=== PATIENT | female | born 1940 | race Caucasian/White ===

== ENCOUNTER 2017-12-17 12:21 | Emergency (ER) | payer OTHER ==
[2017-12-17 14:06] LABS: Absolute Lymphocytes (CBC) 2.5 K/uL (0.7-4.9); Absolute Monocytes 0.7 K/uL (0.1-1.3); Absolute Neutrophil 5.5 K/uL (1.8-8.0); Basophils % 0.8 % (0-1.3); Hematocrit 42.8 % (36.0-45.0); Lymphocytes % 28.3 % (15.3-44.8); MCH 30.9 pg (27.0-35.0); MCV 93.5 fL (80-100); MPV 7.8 fL (7.6-11.3); Monocytes % 7.7 % (3.3-12.3); RBC Red Blood Cell Count 4.58 M/uL (3.86-4.86)
[2017-12-17 14:08] LABS: Potassium 3.8 mEq/L (3.6-5.0)
[2017-12-17] MEDS ORDERED: NA CHLORIDE 0.9% 500 ML ONE (14:08)
[2017-12-17] MEDS ORDERED: MECLIZINE HCL 12.5 MG TAB ONE (14:08)
--- NOTE | 2017-12-17 14:30 | RAD REPORT ---
EXAM DESCRIPTION: CT - Head Brain Wo Cont - 12/17/2017 2:21 pm CLINICAL HISTORY: Dizziness, syncope. COMPARISON: 08/01/2017 TECHNIQUE: All CT scans are performed using dose optimization technique as appropriate and may inclu de automated exposure control or mA/KV adjustment according to patient size. FINDINGS: No intracranial hemorrhage, hydrocephalus or extra-axial fluid collection.Mild generalized brain atrophy is present with mild periventricular and deep white matter chronic microvascular ische erendira changes.No areas of brain edema or evidence of midline shift. The paranasal sinuses and mastoids are clear. The calvarium is intact. IMPRESSION: No acute intracranial abnormality.
--- NOTE | 2017-12-17 14:40 | ER ---
Nurse's Notes [facility] Name: Liza Hernandez Age: 77 yrs Sex: Female : 1940 Arrival Date: 12/17/2017 Time: 12:22 Bed 17 Private MD: Devang Roa R Diagnosis: Vertigo Presentation: 12/17 12:53 Presenting complaint: Patient states: Dizziness z 1 year. Dizziness is worse when hb supine. PCP referred her to ENT, has appt next Tuesday., but feels like she is getting worse. Ambulated with steady gait to triage. Transition of care: patient was not received from another setting of care. Onset of symptoms is unknown. Care prior to arrival: None. 12:53 Method Of Arrival: Ambulatory hb 12:53 Acuity: ITZEL 3 hb Triage Assessment: 13:29 General: Appears in no apparent distress. uncomfortable. General: Behavior is calm, hj cooperative, appropriate for age. Pain: Denies pain. Historical: - Allergies: 12:56 Bactrim; hb 12:56 Codeine; hb 12:56 Demerol; hb 12:56 Tracium; hb - Home Meds: 12:56 Advair Diskus Inhl [Active]; atorvastatin 10 mg Oral tab [Active]; meloxicam 7.5 mg hb Oral tab [Active]; omeprazole 40 mg Oral cpDR 1 cap once daily [Active]; Ventolin HFA 90 mcg/actuation Nebulizer HFAA [Active]; - PMHx: 12:56 COPD; Hyperlipidemia; Vertigo; hb - PSHx: 12:56 Tubal ligation; hb - Immunization history:: Adult Immunizations up to date. - Social history:: Smoking status: Patient/guardian denies using tobacco. - Family history:: not pertinent. - Hospitalizations: : No recent hospitalization is reported. Screenin:29 Abuse screen: Denies threats or abuse. Denies injuries from another. Nutritional hj screening: No deficits noted. Tuberculosis screening: No symptoms or risk factors identified. Fall Risk None identified. Assessment: 13:30 General: Appears in no apparent distress. uncomfortable, Behavior is calm, cooperative, hj appropriate for age. Pain: Denies pain. Neuro: Level of Consciousness is awake, alert, obeys commands, Oriented to person, place, time, situation, Reports dizziness, for a wyear. Cardiovascular: Capillary refill < 3 seconds Patient's skin is warm and dry. Respiratory: Airway is patent Respiratory effort is even, unlabored, Respiratory pattern is regular, symmetrical. GI: No signs and/or symptoms were reported involving the gastrointestinal system. : No signs and/or symptoms were reported regarding the genitourinary system. EENT: Parent/caregiver reports the patient having has an appointment with EENT;. Derm: No signs and/or symptoms reported regarding the dermatologic system. Musculoskeletal: No signs and/or symptoms reported regarding the musculoskeletal system. 14:18 Reassessment: sent to CT;. Vital Signs: 12:56 BP 170 / 84; Pulse 81; Resp 20; Temp 98(TE); Pulse Ox 96% on R/A; Weight 64.41 kg; hb Height 5 ft. 2 in. (157.48 cm); Pain 10/10; 13:30 BP 169 / 85; Pulse 85; Resp 18; Pulse Ox 100% on R/A; hj 14:30 BP 167 / 86; Pulse 87; Resp 18; Pulse Ox 100% on R/A; hj 15:20 BP 168 / 82; Pulse 80; Resp 18; Pulse Ox 100% on R/A; hj 12:56 Body Mass Index 25.97 (64.41 kg, 157.48 cm) hb ED Course: 12:22 Patient arrived in ED. as 12:22 Devang Roa MD is Private Physician. as 12:56 Triage completed. hb 12:56 Arm band placed on right wrist. hb 13:28 Reg Finch, RN is Primary Nurse. hj 13:29 Patient has correct armband on for positive identification. Bed in low position. Call light in reach. Side rails up X 1. 13:38 Chay Cooper MD is Attending Physician. rn 13:41 Initial lab(s) drawn, by ga, sent to lab. Inserted saline lock: 22 gauge in right forearm, using aseptic technique. Blood collected. 14:21 CT Head Brain wo Cont In Process Unspecified. EDMS 14:21 CT completed. Patient tolerated procedure well. Patient moved back from CT. bq 14:27 EKG done, by ED staff, reviewed by Chay Cooper MD. jb1 14:39 Devang Roa MD is Referral Physician. rn 15:02 No provider procedures requiring assistance completed. IV discontinued, intact, hj bleeding controlled, No redness/swelling at site. Pressure dressing applied. Administered Medications: 13:45 Drug: NS 0.9% 500 ml Route: IV; Rate: bolus; Site: right forearm; hj 15:03 Follow up: IV Status: Completed infusion hj 13:45 Drug: Meclizine 50 mg Route: PO; hj 13:54 Follow up: Response: No adverse reaction hj 15:03 Follow up: Response: No adverse reaction Outcome: 14:39 Discharge ordered by . rn 15:02 Discharged to home ambulatory, with family. 15:02 Condition: stable 15:02 Discharge instructions given to patient, family, Instructed on discharge instructions, follow up and referral plans. medication usage, Demonstrated understanding of instructions, follow-up care, medications, Prescriptions given X 1. 15:17 Patient left the ED. Signatures: Dispatcher [employer] EDMS William Sheridan Betty bq Martinez, Amelia as Nieto, Roman, MD MD rn Joaquin, Henry, RN RN hj Baxter, Heather, RN RN
--- NOTE | 2017-12-17 14:40 | EDPHYS ---
Physician Documentation [facility] Name: Liza Hernandez Age: 77 yrs Sex: Female : 1940 Arrival Date: 12/17/2017 Time: 12:22 Bed 17 Private MD: Devang Roa R ED Physician Chay Cooper HPI: 12/17 14:36 This 77 yrs old Female presents to ER via Ambulatory with complaints of rn Dizziness. 14:36 The patient presents with dizziness, vertigo. Onset: The symptoms/episode rn began/occurred 1 year(s) ago. Modifying factors: The symptoms are alleviated by Antivert, holding head still, the symptoms are aggravated by movement of head, standing up, changing position. Severity of symptoms: At their worst the symptoms were moderate in the emergency department the symptoms have improved. The patient has experienced similar episodes in the past. Reports 1 year hx of vertigo, improved with her sons meclizine, ran out, got worse over last few days, came in for medication and evaluation. Has appt with ENT this next week. . Historical: - Allergies: 12:56 Bactrim; hb 12:56 Codeine; hb 12:56 Demerol; hb 12:56 Tracium; hb - Home Meds: 12:56 Advair Diskus Inhl [Active]; atorvastatin 10 mg Oral tab [Active]; meloxicam 7.5 mg hb Oral tab [Active]; omeprazole 40 mg Oral cpDR 1 cap once daily [Active]; Ventolin HFA 90 mcg/actuation Nebulizer HFAA [Active]; - PMHx: 12:56 COPD; Hyperlipidemia; Vertigo; hb - PSHx: 12:56 Tubal ligation; hb - Immunization history:: Adult Immunizations up to date. - Social history:: Smoking status: Patient/guardian denies using tobacco. - Family history:: not pertinent. - Hospitalizations: : No recent hospitalization is reported. ROS: 14:36 Constitutional: Negative for fever, chills, and weight loss, Eyes: Negative for injury, rn pain, redness, and discharge, Neck: Negative for injury, pain, and swelling, Cardiovascular: Negative for chest pain, palpitations, and edema, Respiratory: Negative for shortness of breath, cough, wheezing, and pleuritic chest pain, Abdomen/GI: Negative for abdominal pain, nausea, vomiting, diarrhea, and constipation, MS/Extremity: Negative for injury and deformity, Skin: Negative for injury, rash, and discoloration, Neuro: Negative for headache, weakness, numbness, tingling, and seizure. Exam: 14:36 Constitutional: This is a well developed, well nourished patient who is awake, alert, rn and in no acute distress. Head/Face: Normocephalic, atraumatic. Eyes: Pupils equal round and reactive to light, extra-ocular motions intact. Lids and lashes normal. Conjunctiva and sclera are non-icteric and not injected. Cornea within normal limits. Periorbital areas with no swelling, redness, or edema. Neck: Trachea midline, no thyromegaly or masses palpated, and no cervical lymphadenopathy. Supple, full range of motion without nuchal rigidity, or vertebral point tenderness. No Meningismus. Cardiovascular: Regular rate and rhythm with a normal S1 and S2. No gallops, murmurs, or rubs. Normal PMI, no JVD. No pulse deficits. Respiratory: Lungs have equal breath sounds bilaterally, clear to auscultation and percussion. No rales, rhonchi or wheezes noted. No increased work of breathing, no retractions or nasal flaring. Abdomen/GI: Soft, non-tender, with normal bowel sounds. No distension or tympany. No guarding or rebound. No evidence of tenderness throughout. MS/ Extremity: Pulses equal, no cyanosis. Neurovascular intact. Full, normal range of motion. Equal circumference. Neuro: Awake and alert, GCS 15, oriented to person, place, time, and situation. Cranial nerves II-XII grossly intact. Motor strength 5/5 in all extremities. Sensory grossly intact. Cerebellar exam normal. Normal gait. Vital Signs: 12:56 BP 170 / 84; Pulse 81; Resp 20; Temp 98(TE); Pulse Ox 96% on R/A; Weight 64.41 kg; hb Height 5 ft. 2 in. (157.48 cm); Pain 10/10; 13:30 BP 169 / 85; Pulse 85; Resp 18; Pulse Ox 100% on R/A; hj 14:30 BP 167 / 86; Pulse 87; Resp 18; Pulse Ox 100% on R/A; hj 15:20 BP 168 / 82; Pulse 80; Resp 18; Pulse Ox 100% on R/A; hj 12:56 Body Mass Index 25.97 (64.41 kg, 157.48 cm) hb MDM: 13:38 Patient medically screened. rn 14:36 Differential diagnosis: hypovolemia, idiopathic dizziness, vertigo. Data reviewed: rn vital signs, nurses notes, lab test result(s), EKG, radiologic studies, CT scan, and as a result, I will discharge patient. Counseling: I had a detailed discussion with the patient and/or guardian regarding: the historical points, exam findings, and any diagnostic results supporting the discharge/admit diagnosis, the need for outpatient follow up, to return to the emergency department if symptoms worsen or persist or if there are any questions or concerns that arise at home. Response to treatment: the patient's symptoms have mildly improved after treatment, and as a result, I will discharge patient. Special discussion: I discussed with the patient/guardian in detail that at this point there is no indication for admission to the hospital. It is understood, however, that if the symptoms persist or worsen the patient needs to return immediately for re-evaluation. Based on the history and exam findings, there is no indication for further emergent testing or inpatient evaluation. I discussed with the patient/guardian the need to see the ENT specialist for further evaluation of the symptoms. I discussed with the patient/guardian the need to see the neurologist for further evaluation of the symptoms. 12/17 13:45 Order name: CBC with Diff; Complete Time: 14:21 rn 12/17 13:45 Order name: Basic Metabolic Panel; Complete Time: 14:21 rn 12/17 13:45 Order name: EKG; Complete Time: 13:45 rn 12/17 13:45 Order name: CT Head Brain wo Cont; Complete Time: 14:36 rn 12/17 13:45 Order name: IV Start; Complete Time: 13:45 rn 12/17 13:45 Order name: EKG - Nurse/Tech; Complete Time: 13:45 rn Administered Medications: 13:45 Drug: NS 0.9% 500 ml Route: IV; Rate: bolus; Site: right forearm; hj 15:03 Follow up: IV Status: Completed infusion hj 13:45 Drug: Meclizine 50 mg Route: PO; hj 13:54 Follow up: Response: No adverse reaction hj 15:03 Follow up: Response: No adverse reaction hj Disposition: 12/17/17 14:39 Discharged to Home. Impression: Vertigo. - Condition is Stable. - Discharge Instructions: Vertigo. - Prescriptions for Meclizine 25 mg Oral Tablet - take 1 tablet by ORAL route every 8 hours As needed; 30 tablet. - Medication Reconciliation Form, Thank You Letter, Antibiotic Education, Prescription Opioid Use form. - Follow up: Devang Roa MD; When: As needed; Reason: Recheck today's complaints, Re-evaluation by your physician. - Problem is chronic. - Symptoms have improved. Signatures: Dispatcher [employer] EDMS Chay Cooper MD MD rn Joaquin, Henry, RN RN hj Baxter, Heather, RN RN
--- NOTE | 2017-12-17 14:57 | EKG ---
Test Date: 2017-12-17 Test Time: 13:44:19 Typing Checker: EMERY MEASUREMENT RESULTS: Intervals: Rate: 73 [place]: 158 QRSD: 84 QT: 416 QTc: 458 [place]: P: 38 [place]: 158 QRS: 2 T: 26 INTERPRETIVE STATEMENTS: Normal sinus rhythm Normal ECG Compared to ECG 08/01/2017 10:23:20 No significant changes Electronically Signed On 12-17-17 14:56:26 CDT by Parker Arora
[2017-12-17 15:25] VITALS: BP 170/84; TEMP 98; O2SAT 96
== END 2017-12-17 15:17 | disposition home or self-care (01) ==
LOC: ER 12:21
DX: R42 Dizziness and giddiness (principal); J44.9 Chronic obstructive pulmonary disease, unspecified; E78.5 Hyperlipidemia, unspecified; Z88.1 Allergy status to other antibiotic agents; Z88.5 Allergy status to narcotic agent; Z88.8 Allergy status to other drugs, medicaments and biological substances
CPT/HCPCS: 36415; 70450; 80048; 85025; 93005; 96360; 99284

== ENCOUNTER 2020-08-07 11:42 | Emergency (ER) | payer OTHER ==
--- OUTSIDE RECORDS SUMMARY | 2020-08-07 11:45 | XMS REPORT | Encounter Summary ---
:1940 Author Care Team Providers Name Role Phone Dr. Devang Trejo Primary Care Provider [phone] Reason for Visit TELE-AWV Annual Wellness Visit Female Instructions 1. Advance directive discussed w ith patient advance care planning: car e instructions 2. Depression screening learning about depression 3. Chronic obstructive lung dise ase 4. Essential hypertension 5. Gastroesophageal reflux disea se 6. Rheumatoid arthritis 7. Hypercholesterolemia Discussion Note Patient denies any acute issues at this time. Patient encouraged to continue with treatment as directed. Patient enco uraged to notify pcp for continues sob,cough and fever. Patient verbalized understand ing. Plan of Care Patient Instructions It was good to speak with you nicolasa braswelly today for your Medicare Annual Wellness Visit. You have been provided some information on healthy nutrition, including a diet rich in fruits and vegetables, minimizing simple carbohydrates, salt, and saturated fats. I want to encourage regular cardiovascular exercise such as walking at least 30 minutes daily, 5 times per week. Please remember to schedule any prevent dana health measures that we talked about today. You have also been provided education on fall prevention and community- based lifestyle interventions to help reduc e health risks and promote healthy livin g in your Annual Wellness folder. Screening Recommendations 1. Vaccines Pneumonia: No further need Influenza: This Fall 2. Mammography Screening: Next Screening 3. Colorectal Cancer Screening: Colonoscopy a ago Recommended today 4. Annual Depression Screening 5 . Annual Alcohol Screening 6. Annual Fal l Risk Screening 7. Annual Health Risk Assessment Reminders Provider Appointments Telemedicine on or around Yany 07/03/2020 [facility] None recorded. Referral None recorded. Procedures None recorded. Surgeries None recorded. Imaging None recorded. Medications Name Start Date Advair Diskus 100 mcg-50 mcg/dose powder for inhalatio n Inhale 1 puff twice a day by inhalation route. atorvastatin 10 mg tablet Take 1 tablet every day by oral route. meloxicam 7.5 mg tablet Take 1 tablet every day by oral route. omeprazole 40 mg capsule,delayed release Take 1 capsule every day by oral route. ProAir HFA 90 mcg/actuation aerosol inhaler Inhale 2 puffs every 4 hours by inhalation route. valsartan 80 mg tablet Take 1 tablet every day by oral route. Medications Administered None recorded. Vitals Height Weight BMI 5 ft 2 in 144 lbs 26.3 kg/m2 Results Lab Results None recorded. Allergies Code Code System Name Reaction Severity Status Onset 060891 RxNorm Bactrim Rash Mild to Active Moderate 2670 RxNorm Codeine Flushing Moderate to Active Severe Problems Name Status Onset Date Source Hypercholesterolemia Active 06/10/2020 Essential Hypertension Active 06/10/2020 Chronic Obstructive Lung Disease Active 06/10/2020 Gastroesophageal Reflux Disease Active 06/10/2020 Rheumatoid Arthritis Active 06/10/2020 Procedures None recorded. Vaccine List None recorded. Social History Tobacco Smoking Status Former Smoker (1 PPW) Past Encounters 06/10/2020 Advance Directive Discussed with Patient ; Depression Screening; Chronic Obstructive Lung Disease; Essential Hypertension; Gastroesophageal Reflux Disease; Rheumatoid Arthritis; Hypercholesterolemia Yany Soliman [employer]: [address] [facility], [address], [place] [address], Ph. History of Present Illness COPD Reported By: Patient HPI:: COPD Staging: no prior rayshawn metry. Quality: no cough, no shortness of breath, no wheezing. Severit y: mild. Onset/Timing: chronic. Context: cigarette smoking. Prior kevyn atment history number of exacerbations in past year 0. COPD Medication s: no rescue medication use. Alleviating factors: relieved with rest, relieved with oxygen. Aggravating factors: nothing makes it worse. Asso ciated Symptoms: no snoring, no excessive daytime sleepiness, no arous als from sleep, no dyspnea, no decrease in exercise capacity, no fatigu e, not coughing up sputum Mini Cog Reported By: Patient Functional Ability: Personal/Social/ Draw a cloc k and write in the numbers in the correct place, and set the t lionel to 10 minutes after 11 o'clock was completed correctly? Yes Opioid Use Assessment Reported By: Patient Opioid Use Assessment:: Current Use of Opioids : no use of opioids (no further questions required) Note: I confirm that I received verbal consent from the patient for the virtual visit.
This telemedicine encounter was performed using live {{video and audio|audio only because either patient did not have technology or unable to connect due to technical problems*}}.
<strong>(for a udio only)</strong> Total time spent with patient: {{50#| }} minutes.<div>[facility] ( SHANNAN: __Aminata Charlene-Mbayo ) reviewed the [employer] [facility] consent form verbally withpatient. Patient {{did*|did not}} have questions. Any and all patient questions were addressed. Patient consented to health care services provided via [employer]. Patient was directed to the [facility] website to review the form in greater detail. Patient was informed that a physical copy of the consent would be mailed to his/her home. Patient confirmed that, upon receipt of the consent, that he/she will sign and return the form in the pre-addressed and stamped envelope.</div> Review of Systems Comprehensive General Adult ROS Reported By: Patient Constitutional: Constitutional: no fever, no night sweats, no significant weight gain, no significant weight loss, no exercise intolerance Eyes: Eyes: no dry eyes, no vision change, no irritation ENMT: Ears: no difficulty hearing, no ear pain. Nose: no frequent nosebleeds, no nose problems , no sinus problems. Mouth/Throat: no sore throat, no bleeding gums, no snoring, no dry mouth, no mouth ulcers, no oral abnorm alities, no teeth problems Cardiovascular: Cardiovascular: no chest fabrizio n, no arm pain on exertion, no shortness of breath when wal [place], no shortness of breath when lying down, no palpitations, no known heart murmur, no lightheadedness Respiratory: Respiratory: no cough, no wh eezing, no shortness of breath, no coughing up blood, no sleep apnea Gastrointestinal: Gastrointestinal: no abdomin al pain, no nausea, no vomiting, no constipation, normal appe tite, no diarrhea, not vomiting blood, no dyspepsia, no GERD Genitourinary: Genitourinary: no incontinen ce, no difficulty urinating, no hematuria, no increased freq uency Musculoskeletal: Musculoskeletal: no muscle a ches, no muscle weakness, no arthralgias/joint pain, no b ack pain, no swelling in the extremities Integumentary: Skin: no abnormal mole, no j aundice, no rashes, no laceration Neurologic: Neurologic: no loss of consc iousness, no weakness, no numbness, no seizures, no di zziness, no migraines, no headaches, no tremor Psychiatric: Psych: no depression, no sle ep disturbances, feeling safe in a relationship, no alcohol abu se, no anxiety, no hallucinations, no suicidal thoughts Endocrine: Endocrine: no fatigue Hematologic/Lymphatic: Hematologic/Lymphatic no swo llen glands, no bruising, no excessive bleeding Allergic/Immunologic: Allergy/Immunologic: no runn y nose, no sinus pressure, no itching, no hives, no freque nt sneezing Physical Exam Telemedicine/Virtual Visit Reported By: Patient Constitutional: Level of Distress: NAD Psychiatric: Insight: good judgement. Men cinda Status: active and alert, normal mood, normal affect. Orienta tion: to time, to place, to person. Memory: recent memory normal , remote memory normal"
--- OUTSIDE RECORDS SUMMARY | 2020-08-07 11:45 | XMS REPORT | Encounter Summary ---
:1940 Author Care Team Providers Name Role Phone Dr. Devang Trejo Primary Care Provider [phone] Reason for Visit Gastroesophageal reflux disease; Hyperch olesterolemia; Essential hypertension; Telemedicine Visit Instructions 1. Hypercholesterolemia 2. Gastroesophageal reflux disea se 3. Essential hypertension 4. Chronic obstructive lung dise ase Discussion Note Patient denies any acute issues at this time. Patient encouraged to notify her pcp for any continues fever,cough and so b. Patient verbalized understanding. Patient educational handouts: No information available. Plan of Care Reminders Provider Appointments Telemedicine on or around Yany 10/06/2020 [facility] None recorded. Referral None [...] oral route. Medications Administered None recorded. Vitals None recorded. Results Lab Results None recorded. Allergies Code Code System Name Reaction Severity Status Onset 060439 RxNorm Bactrim Rash Mild to Active Moderate 3800 RxNorm Codeine Flushing Moderate to Active Severe Problems Name Status Onset Date Source Hypercholesterolemia Active 06/10/2020 Essential Hypertension Active 06/10/2020 Chronic Obstructive Lung Disease Active 06/10/2020 Gastroesophageal Reflux Disease Active 06/10/2020 Rheumatoid Arthritis Active 06/10/2020 Procedures None recorded. Vaccine List None recorded. Social History Tobacco Smoking Status Former Smoker (1 PPW) Past Encounters Encounter Date Diagnosis Provider 07/03/2020 Hypercholesterolemia; Yany Charlene-Mbay o, SEC[employer] SALES MANAGER: Gastroesophageal Reflux Disease; [address], [address] Essential Hypertension; [address], [place], [place] Obstructive Lung Disease [id number], Ph. 06/10/2020 Advance Directive Discussed with Yany Soliman NP: Patient; Depression Screening; [address], [address] Chronic Obstructive Lung Disease; [address], [place], [place] Essential Hypertension; [address], Ph. [phone] Gastroesophageal Reflux Disease; [phone] Rheumatoid Arthritis; Hypercholesterolemia History of Present Illness COPD CDM Reported By: Patient HPI:: Quality: no cough, no shortn ess of breath, no wheezing. COPD Severity and Treatment: COPD exacerba tions (ex. ED or urgent care visit, PCP visit, used Rescue Pack) in last year: 0. Context: does patient use rescue inhaler as prescribed ? yes, does patient take daily COPD medications as prescribed? yes, does patient have trouble affording COPD medications? No, sees a transportation economics teacher no GI Disorders CDM Reported By: Patient HPI: Type: GERD without esophagit is. Duration or Onset: chronic. Status: controlled. Associated Sympt oms: no NEW associated symptoms, no abdominal pain, no melena, n o hematochezia, no dry mouth. Modifying Factors: improved with medic ation, improved with exercise, improved with diet. Compliance: COMPLIANT WITH and UNDERSTANDS MED USE, compliant with diet Hyperlipidemia Reported By: Patient HPI: Type of hyperlipidemia: hype rcholesterolemia. Duration: chronic. Control: improving. Complian ce: compliant, compliant with diet. Complications: no coronary a rtery disease Hypertension Reported By: Patient HPI: Severity: mild. Onset/Timing : better. Aggravating Factors: changed exercise routine. Self Care: not under emotional stress. Associated Symptoms: no shortness of br eath, no fatigue, no palpitations Note: I confirm that I received verbal consent from the patient for the virtual visit.
This telemedicine encounter was performed using live {{video and audio|audio only because either patient did not have technology or unable to connect due to technical problems*}}.
<strong>(for a udio only)</strong> Total time spent with patient: {{35#| }} minutes. Review of Systems Comprehensive General Adult ROS [...]
--- OUTSIDE RECORDS SUMMARY | 2020-08-07 11:45 | XMS REPORT | Continuity of Care Document ---
:1940 Author Organization [facility] t Address [address] [place] [id number] Care Team Providers Name Role Phone Unavailable Unavailable Unavailable Problems Condition Condition Condition Status Onset Resolution Last Treating Co mments Source Name Details Category Date Date Treatment Clinician Date Hyperchole Hyperchole Problem Active [facility] sterolemia sterolemia 06-10 Fa cristóbal 00:00: Practic 00 e Essential Essential Problem Active Tc rosmery hypertensi Hypertensi 06-10 Fa cristóbal on on 00:00: Practic 00 e Chronic Chronic Problem Active [place] obstructiv Obstructiv 06-10 Fa cristóbal e lung e Lung 00:00: Practic disease Disease 00 e Gastroesop Gastroesop Problem Active [facility] hageal hageal 06-10 Family reflux Reflux 00:00: Practic disease Disease 00 e Rheumatoid Rheumatoid Problem Active [facility] arthritis Arthritis 06-10 Fami ly 00:00: Practic 00 e Allergies, Adverse Reactions, Alerts Allergy Allergy Status Severity Reaction(s) Onset Inactive Treating Comm ents Source Name Type Date Date Clinician Bactrim Allergy Active Mild to Rash [place] to moderate Family substanc Practic e e Codeine Allergy Active Moderate [place] age to to severe Family substanc Practic e e Social History Smoking Status Start Date Stop Date Source Former Smoker [facility] Medications Ordered Filled Start Stop Current Ordering Indication Dosage Frequency Signature Comments Components Source Medication Medication Date Date Medication? Clinician (SIG) Name Name Advair Advair No 1puff(s BID Advair [place] e Diskus 100 Diskus 100 ) Diskus 100 Family mcg-50 mcg-50 mcg-50 Practic mcg/dose mcg/dose mcg/dose e powder for powder for powder for inhalation inhalation inhalation Inhale 1 Inhale 1 Inhale 1 puff twice puff twice puff twice a day by a day by a day by inhalation inhalation inhalation route. route. route. atorvastati atorvastati No 1 Q1D atorvastat [facility] n 10 mg n 10 mg in 10 mg Famil y tablet Take tablet Take tablet Practic 1 tablet 1 tablet Take 1 e every day every day tablet by oral by oral every day route. route. by oral route. meloxicam meloxicam No 1 Q1D meloxicam [facility] 7.5 mg 7.5 mg 7.5 mg Family tablet Take tablet Take tablet Practic 1 tablet 1 tablet Take 1 e every day every day tablet by oral by oral every day route. route. by oral route. omeprazole omeprazole No 1capsul Q1D omeprazole [facility] 40 mg 40 mg e(s) 40 mg Family capsule,del capsule,del capsule,de Practic ayed ayed layed e release release release Take 1 Take 1 Take 1 capsule capsule capsule every day every day every day by oral by oral by oral route. route. route. ProAir HFA ProAir HFA No 2puff(s Q4H ProAir HFA [facility] 90 90 ) 90 Family mcg/actuati mcg/actuati mcg/actuat Practic on aerosol on aerosol ion e inhaler inhaler aerosol Inhale 2 Inhale 2 inhaler puffs every puffs every Inhale 2 4 hours by 4 hours by puffs inhalation inhalation every 4 route. route. hours by inhalation route. valsartan valsartan No 1 Q1D valsartan [facility] 80 mg 80 mg 80 mg Family tablet Take tablet Take tablet Practic 1 tablet 1 tablet Take 1 e every day every day tablet by oral by oral every day route. route. by oral route. Vital Signs Vital Name Observation Time Observation Value Comments Source Height 2020-06-10 00:00:00 62 [in_i] [facility] BMI (Body Mass 2020-06-10 00:00:00 26.3 kg/m2 [facility] Weight 2020-06-10 00:00:00 144 [lb_av] [facility] Procedures This patient has no known procedures. Plan of Care Planned Activity Planned Date Details Comments Source Future Appointment 2020-10-06 00:00:00 Yany iqbal [facility] DerekAnne, [address]; [address], [place] [address] Encounters Start End Encounter Admission Attending Care Care Encounter Source Date/Time Date/Time Type Type Clinicians Facility Department ID 2020-07-03 2020-07-03 [facility] - [id number] [facility] 00:00:00 00:00:[address] [facility] Charly soler ANALYSIS MANAGER: Margareth Mal[email or web address], [place] [address] , Ph. 2020-06-10 2020-06-10 [facility] [place] - [id number] [facility] Charly soler ANALYSIS MANAGER: Margareth will [email or web address], [place] [address] , Ph. Results This patient has no known results.
[2020-08-07 13:25] LABS: Absolute Lymphocytes (CBC) 0.6 K/uL (0.7-4.9); Basophils % 0.3 % (0-1.3); Hematocrit 41.4 % (36.0-45.0); Lymphocytes % 4.8 % (15.3-44.8); MPV 7.9 fL (7.6-11.3); RBC Red Blood Cell Count 4.45 M/uL (3.86-4.86)
[2020-08-07] MEDS ORDERED: FAMOTIDINE 20 MG/2 ML VIAL IV ONE (13:25)
[2020-08-07] MEDS ORDERED: KETOROLAC 30 MG/ML INJ ONE (13:25)
[2020-08-07] MEDS ORDERED: ONDANSETRON 4 MG/2 ML VIAL ONE (13:25)
[2020-08-07] MEDS ORDERED: MAGNES/ALUMIN/SIMET 30ML UCUP ONE (13:25)
[2020-08-07] MEDS ORDERED: NA CHLORIDE 0.9% 1,000 ML ONE (13:26)
[2020-08-07 13:37] LABS: Albumin 3.9 g/dL (3.4-5.0); Bilirubin Direct 0.3 mg/dL (0-0.2); Bilirubin Total 1.1 mg/dL (0.2-1.0); Potassium 3.9 mmol/L (3.5-5.1); Protein, Total 7.8 g/dL (6.4-8.2)
--- NOTE | 2020-08-07 14:22 | RAD REPORT ---
EXAM DESCRIPTION: CT - Abdomen Pelvis W Contrast - 08/07/2020 1:58 pm CLINICAL HISTORY: Abdominal pain COMPARISON: 2014 TECHNIQUE: Computed axial tomography of the abdomen pelvis was obtained. 100 cc Isovue-300 was admin istered intravenously. Oral contrast was not requested which limits evaluation of bowel. All CT scans are performed using dose optimization technique as appropriate and may include automated exposure control or mA/KV adjustment according to patient size. FINDINGS: The liver, spleen, pancreas, adrenal and kidneys appear unremarkable. 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 Diverticula stem from the colon. Minimal stranding adjacent to the sigmoid colon Mildly prominent left ovary is unchanged. Endometrial stripe is prominent. Mild gallbladder distention Small hiatal hernia IMPRESSION: Prominent endometrial stripe may be secondary to endometrial hyperplasia, polyp or neopl asm Mild gallbladder distention Minimal sigmoid diverticulitis
[2020-08-07 14:53] LABS: Blood Morphology Comment NOT SEEN (NOT SEEN); Platelet Estimate ADEQ; White Blood Cell Scan OK (OK)
[2020-08-07 15:01] LABS: Urine Blood NEGATIVE (NEG); Urine Glucose NEGATIVE (NEG); Urine Protein NEGATIVE (NEG); Urine Specific Gravity 1.005 (1.005-1.030); Urine pH 5.5 (5.0-7.0)
[2020-08-07] MEDS ORDERED: CEFTRIAXONE/SWI 1gm 1 GM/10 ML SYR ONE (15:42)
[2020-08-07] MEDS ORDERED: METRONIDAZOLE 500mg IVPB 500 MG/100 ML BAG IV ONE (15:42)
--- NOTE | 2020-08-07 16:05 | ER ---
Nurse's Notes [facility] Name: Liza Hernandez Age: 79 yrs Sex: Female : 1940 Arrival Date: 08/07/2020 Time: 11:45 Bed 13 Private MD: Devang Roa R Diagnosis: Diverticulitis of large intestine without perforation or abscess without bleeding Presentation: 08/07 12:05 Chief complaint: Patient states: "I started with this stomach flu since 0800 and I have jd3 been vomiting and having diarrhea since.". Coronavirus screen: At this time, the client does not indicate any symptoms associated with coronavirus-19. Ebola Screen: Patient negative for fever greater than or equal to 101.5 degrees Fahrenheit, and additional compatible Ebola Virus Disease symptoms. Initial Sepsis Screen: Does the patient meet any 2 criteria? No. Patient's initial sepsis screen is negative. Does the patient have a suspected source of infection? No. Patient's initial sepsis screen is negative. Risk Assessment: Do you want to hurt yourself or someone else? Patient reports no desire to harm self or others. Onset of symptoms was August 07, 2020. 12:05 Method Of Arrival: Ambulatory jd3 12:05 Acuity: ITZEL 3 jd3 Triage Assessment: 16:17 GI: Reports. ca1 Historical: - Allergies: 12:06 Bactrim; jd3 12:06 Codeine; jd3 12:06 Demerol; jd3 12:06 Tracium; jd3 - PMHx: 12:06 Hyperlipidemia; COPD; Vertigo; jd3 - PSHx: 12:06 Tubal ligation; jd3 - Immunization history:: Adult Immunizations up to date. - Social history:: Smoking status: Patient/guardian denies using tobacco, the patient reports quitting approximately 7 years ago, The patient lives with family, with spouse. - Family history:: not pertinent. Screenin:15 Abuse screen: Denies threats or abuse. Denies injuries from another. Nutritional ca1 screening: No deficits noted. Tuberculosis screening: No symptoms or risk factors identified. Fall Risk IV access (20 points). Assessment: 12:15 General: Appears in no apparent distress. comfortable, Behavior is calm, cooperative, ca1 appropriate for age. Pain: Complains of pain in right upper quadrant and left upper quadrant Pain currently is 2 out of 10 on a pain scale. Pain began 4 hours ago. Neuro: Level of Consciousness is awake, alert, obeys commands, Oriented to person, place, time, situation. Cardiovascular: Heart tones S1 S2 present Capillary refill < 3 seconds Patient's skin is warm and dry. Respiratory: Airway is patent Respiratory effort is even, unlabored, Respiratory pattern is regular, symmetrical, Breath sounds are clear bilaterally. GI: Abdomen is flat, non-distended, Bowel sounds present X 4 quads. Abd is soft and non tender X 4 quads. : No signs and/or symptoms were reported regarding the genitourinary system. EENT: No signs and/or symptoms were reported regarding the EENT system. Derm: Skin is intact, is healthy with good turgor, Skin is pink, warm \\T\\ dry. Musculoskeletal: Circulation, motion, and sensation intact. Capillary refill < 3 seconds. 13:15 Reassessment: Patient appears in no apparent distress at this time. Patient and/or ca1 family updated on plan of care and expected duration. Pain level reassessed. Patient is alert, oriented x 3, equal unlabored respirations, skin warm/dry/pink. 14:20 Reassessment: Patient appears in no apparent distress at this time. Patient and/or ca1 family updated on plan of care and expected duration. Pain level reassessed. Patient is alert, oriented x 3, equal unlabored respirations, skin warm/dry/pink. 15:16 Reassessment: Patient appears in no apparent distress at this time. Patient and/or ca1 family updated on plan of care and expected duration. Pain level reassessed. Patient is alert, oriented x 3, equal unlabored respirations, skin warm/dry/pink. 16:15 Reassessment: Patient appears in no apparent distress at this time. Patient is alert, ca1 oriented x 3, equal unlabored respirations, skin warm/dry/pink. Vital Signs: 12:06 BP 128 / 62; Pulse 100; Resp 17 S; Temp 97.2(TE); Pulse Ox 95% on R/A; Weight 66.22 kg jd3 (R); Height 5 ft. 2 in. (157.48 cm) (R); Pain 0/10; 13:15 BP 116 / 65; Pulse 92; Resp 16 S; Pulse Ox 96% on R/A; ca1 14:20 BP 119 / 69; Pulse 76; Resp 16 S; Pulse Ox 95% on R/A; ca1 15:15 BP 123 / 68; Pulse 89; Resp 18 S; Pulse Ox 96% on R/A; ca1 16:15 BP 121 / 71; Pulse 71; Resp 16; Pulse Ox 96% on R/A; ca1 12:06 Body Mass Index 26.70 (66.22 kg, 157.48 cm) jd3 ED Course: 11:45 Patient arrived in ED. as 11:45 Dveang Roa MD is Private Physician. as 12:05 Triage completed. jd3 12:08 Arm band placed on. jd3 12:13 Saba Zeng MD is Attending Physician. ma2 12:15 Patient has correct armband on for positive identification. Placed in gown. Bed in low ca1 position. Call light in reach. Side rails up X 1. Pulse ox on. NIBP on. Warm blanket given. 12:17 Jen Chatterjee, STEPHY is Primary Nurse. ca1 13:14 Inserted saline lock: 20 gauge in right antecubital area, using aseptic technique. dh4 Blood collected. 13:59 CT Abd/Pelvis - IV Contrast Only In Process Unspecified. EDMS 16:16 No provider procedures requiring assistance completed. IV discontinued, intact, ca1 bleeding controlled, No redness/swelling at site. Pressure dressing applied. Administered Medications: 13:15 Drug: NS 0.9% 1000 ml Route: IV; Rate: 1000 ml; Site: right forearm; ca1 14:20 Follow up: Response: No adverse reaction; IV Status: Completed infusion; IV Intake: ca1 1000ml 15:27 Follow up: Response: No adverse reaction; Nausea is decreased ca1 13:16 Drug: Zofran (Ondansetron) 4 mg Route: IVP; Site: right forearm; ca1 14:00 Follow up: Response: No adverse reaction; Nausea is decreased ca1 13:18 Drug: Pepcid 20 mg Route: IVP; Site: right forearm; ca1 15:28 Follow up: Response: No adverse reaction ca1 13:19 Drug: TORadol 30 mg Route: IVP; Site: right forearm; ca1 14:00 Follow up: Response: No adverse reaction; Pain is decreased ca1 13:21 Drug: GI Cocktail without - (Maalox Suspension 30 ml, Lidocaine Liquid 2 % 15 ca1 ml) Route: PO; 14:30 Follow up: Response: No adverse reaction ca1 15:34 Drug: Rocephin 1 grams Route: IV; Rate: calculated rate; Site: right forearm; ss 16:00 Follow up: Response: No adverse reaction; IV Status: Completed infusion ca1 15:36 Drug: Flagyl 500 mg Volume: 100 ml; Route: IVPB; Rate: 200 ml/hr; Infused Over: 30 ss mins; Site: right forearm; 16:15 Follow up: Response: No adverse reaction; IV Status: Completed infusion ca1 Intake: 14:20 IV: 1000ml; Total: 1000ml. ca1 Outcome: 16:05 Discharge ordered by MD. barnett 16:16 Discharged to home ambulatory, with family. ca1 16:16 Condition: stable 16:16 Discharge instructions given to patient, Instructed on discharge instructions, follow up and referral plans. medication usage, Demonstrated understanding of instructions, follow-up care, medications, Prescriptions given X 5 16:17 Patient left the ED. ca1 Signatures: Dispatcher [employer] EDYessi Kirkpatrick Shelby, STEPHY RN Piter Ponce RN RN Saba Chaney MD MD ma2 Acob, Cheryl, RN RN ca1 Huhn, Donald dh4
--- NOTE | 2020-08-07 16:05 | EDPHYS ---
Physician Documentation [facility] Name: Liza Hernandez Age: 79 yrs Sex: Female : 1940 Arrival Date: 08/07/2020 Time: 11:45 Bed 13 Private MD: Devang Roa R ED Physician Saba Zeng HPI: 08/07 12:39 This 79 yrs old Female presents to ER via Ambulatory with complaints of ma2 Vomiting/Diarrhea. 12:39 The patient presents to the emergency department with nausea, vomiting, diarrhea. ma2 Onset: The symptoms/episode began/occurred gradually, 1 day(s) ago. Associated signs and symptoms: Pertinent negatives: belching, dysuria. Severity of symptoms: At their worst the symptoms were moderate in the emergency department the symptoms are unchanged. The patient has not experienced similar symptoms in the past. Historical: - Allergies: 12:06 Bactrim; jd3 12:06 Codeine; jd3 12:06 Demerol; jd3 12:06 Tracium; jd3 - PMHx: 12:06 Hyperlipidemia; COPD; Vertigo; jd3 - PSHx: 12:06 Tubal ligation; jd3 - Immunization history:: Adult Immunizations up to date. - Social history:: Smoking status: Patient/guardian denies using tobacco, the patient reports quitting approximately 7 years ago, The patient lives with family, with spouse. - Family history:: not pertinent. ROS: 12:39 Constitutional: Negative for fever, chills, and weight loss. ma2 12:39 All other systems are negative. Exam: 12:39 Constitutional: This is a well developed, well nourished patient who is awake, alert, ma2 and in no acute distress. Head/Face: Normocephalic, atraumatic. Eyes: Pupils equal round and reactive to light, extra-ocular motions intact. Lids and lashes normal. Conjunctiva and sclera are non-icteric and not injected. Cornea within normal limits. Periorbital areas with no swelling, redness, or edema. ENT: Nares patent. No nasal discharge, no septal abnormalities noted. Tympanic membranes are normal and external auditory canals are clear. Oropharynx with no redness, swelling, or masses, exudates, or evidence of obstruction, uvula midline. Mucous membranes moist. Neck: Trachea midline, no thyromegaly or masses palpated, and no cervical lymphadenopathy. Supple, full range of motion without nuchal rigidity, or vertebral point tenderness. No Meningismus. Chest/axilla: Normal chest wall appearance and motion. Nontender with no deformity. No lesions are appreciated. Cardiovascular: Regular rate and rhythm with a normal S1 and S2. No gallops, murmurs, or rubs. Normal PMI, no JVD. No pulse deficits. Respiratory: Lungs have equal breath sounds bilaterally, clear to auscultation and percussion. No rales, rhonchi or wheezes noted. No increased work of breathing, no retractions or nasal flaring. Abdomen/GI: Soft, non-tender, with normal bowel sounds. No distension or tympany. No guarding or rebound. No evidence of tenderness throughout. Back: No spinal tenderness. No costovertebral tenderness. Full range of motion. Skin: Warm, dry with normal turgor. Normal color with no rashes, no lesions, and no evidence of cellulitis. MS/ Extremity: Pulses equal, no cyanosis. Neurovascular intact. Full, normal range of motion. Neuro: Awake and alert, GCS 15, oriented to person, place, time, and situation. Cranial nerves II-XII grossly intact. Motor strength 5/5 in all extremities. Sensory grossly intact. Cerebellar exam normal. Normal gait. Psych: Awake, alert, with orientation to person, place and time. Behavior, mood, and affect are within normal limits. Vital Signs: 12:06 BP 128 / 62; Pulse 100; Resp 17 S; Temp 97.2(TE); Pulse Ox 95% on R/A; Weight 66.22 kg jd3 (R); Height 5 ft. 2 in. (157.48 cm) (R); Pain 0/10; 13:15 BP 116 / 65; Pulse 92; Resp 16 S; Pulse Ox 96% on R/A; ca1 14:20 BP 119 / 69; Pulse 76; Resp 16 S; Pulse Ox 95% on R/A; ca1 15:15 BP 123 / 68; Pulse 89; Resp 18 S; Pulse Ox 96% on R/A; ca1 16:15 BP 121 / 71; Pulse 71; Resp 16; Pulse Ox 96% on R/A; ca1 12:06 Body Mass Index 26.70 (66.22 kg, 157.48 cm) jd3 MDM: 12:13 Patient medically screened. ma2 12:39 Differential diagnosis: gastritis, pancreatitis, viral gastroenteritis, gastroenteritis.ma2 15:30 Data reviewed: vital signs, nurses notes. Counseling: I had a detailed discussion with ma2 the patient and/or guardian regarding: the historical points, exam findings, and any diagnostic results supporting the discharge/admit diagnosis, the presence of at least one elevated blood pressure reading (>120/80) during this emergency department visit, the need for outpatient follow up. Response to treatment: the patient's symptoms have resolved after treatment. ED course: patient has diverticulitis on ct, she also has mild elevation in lft and distended gall bladder, however no ttp on RUQ, we called US she states that gall bladder is not one of the criteria that they can come to the hospital for since it is a holiday, i re-evaluated the patient, her pain is resolved, will give her iv abx for diverticulitis, she does not have fever or elevated wbc that would indicate acute cholecysitis. patient wants to go home and she states she will return tomorrow for RUQ US and evaluation. she lives 20 min away from the hospital i gave return precaution for fever abd pain especially on RUQ and vomiting . 08/07 12:38 Order name: Basic Metabolic Panel; Complete Time: 13:48 nc2 08/07 12:38 Order name: CBC with Diff; Complete Time: 15:22 nc2 08/07 12:38 Order name: Hepatic Function; Complete Time: 13:48 [facility] 08/07 12:38 Order name: Lipase; Complete Time: 13:48 [facility] 08/07 14:34 Order name: Urine Dipstick--Ancillary (enter results); Complete Time: 15:22 eb 08/07 14:52 Order name: CBC Smear Scan; Complete Time: 15:22 EDMS 08/07 12:38 Order name: CT Abd/Pelvis - IV Contrast Only; Complete Time: 15:22 nc2 08/07 12:38 Order name: IV Saline Lock; Complete Time: 13:14 nc2 08/07 12:38 Order name: NPO; Complete Time: 13:20 [facility] 08/07 12:38 Order name: Urine Dipstick-Ancillary (obtain specimen); Complete Time: 14:39 ma2 Administered Medications: 13:15 Drug: NS 0.9% 1000 ml Route: IV; Rate: 1000 ml; Site: right forearm; ca1 14:20 Follow up: Response: No adverse reaction; IV Status: Completed infusion; IV Intake: ca1 1000ml 15:27 Follow up: Response: No adverse reaction; Nausea is decreased ca1 13:16 Drug: Zofran (Ondansetron) 4 mg Route: IVP; Site: right forearm; ca1 14:00 Follow up: Response: No adverse reaction; Nausea is decreased ca1 13:18 Drug: Pepcid 20 mg Route: IVP; Site: right forearm; ca1 15:28 Follow up: Response: No adverse reaction ca1 13:19 Drug: TORadol 30 mg Route: IVP; Site: right forearm; ca1 14:00 Follow up: Response: No adverse reaction; Pain is decreased ca1 13:21 Drug: GI Cocktail without - (Maalox Suspension 30 ml, Lidocaine Liquid 2 % 15 ca1 ml) Route: PO; 14:30 Follow up: Response: No adverse reaction ca1 15:34 Drug: Rocephin 1 grams Route: IV; Rate: calculated rate; Site: right forearm; ss 16:00 Follow up: Response: No adverse reaction; IV Status: Completed infusion ca1 15:36 Drug: Flagyl 500 mg Volume: 100 ml; Route: IVPB; Rate: 200 ml/hr; Infused Over: 30 ss mins; Site: right forearm; 16:15 Follow up: Response: No adverse reaction; IV Status: Completed infusion ca1 Disposition: 08/07/20 16:05 Discharged to Home. Impression: Diverticulitis of large intestine without perforation or abscess without bleeding. - Condition is Stable. - Discharge Instructions: Diverticulitis. - Prescriptions for Zofran 4 mg Oral Tablet - take 1 tablet by ORAL route every 12 hours As needed; 20 tablet. Pepcid 20 mg Oral Tablet - take 1 tablet by ORAL route once daily for 10 days; 10 tablet. Flagyl 500 mg Oral Tablet - take 4 tablet by ORAL route one time for 1 day; 4 tablet. Cipro 500 mg Oral Tablet - take 1 tablet by ORAL route every 12 hours for 7 days; 14 tablet. Diclofenac Sodium 75 mg Oral Tablet Sustained Release - take 1 tablet by ORAL route 2 times per day; 30 tablet. - Medication Reconciliation Form, Thank You Letter, Antibiotic Education, Prescription Opioid Use form. - Follow up: Private Physician; When: Tomorrow; Reason: Continuance of care. Signatures: Dispatcher [employer] Pretty Becker RN RN Piter Gibbs RN RN Saba Chaney MD MD ma2 Jen Chatterjee RN RN ca1 Corrections: (The following items were deleted from the chart) 16:17 16:05 08/07/2020 16:05 Discharged to Home. Impression: Diverticulitis of large ca1 intestine without perforation or abscess without bleeding. Condition is Stable. Discharge Instructions: Diverticulitis. Prescriptions for Zofran 4 mg Oral Tablet - take 1 tablet by ORAL route every 12 hours As needed; 20 tablet, Pepcid 20 mg Oral Tablet - take 1 tablet by ORAL route once daily for 10 days; 10 tablet, Flagyl 500 mg Oral Tablet - take 4 tablet by ORAL route one time for 1 day; 4 tablet, Cipro 500 mg Oral Tablet - take 1 tablet by ORAL route every 12 hours for 7 days; 14 tablet, Diclofenac Sodium 75 mg Oral Tablet Sustained Release - take 1 tablet by ORAL route 2 times per day; 30 tablet. and Forms are Medication Reconciliation Form, Thank You Letter, Antibiotic Education, Prescription Opioid Use. Follow up: Private Physician; When: Tomorrow; Reason: Continuance of care. ma2
[2020-08-07 19:05] VITALS: TEMP 97.2
[2020-08-07 19:19] VITALS: O2SAT 96
[2020-08-07 19:21] VITALS: BP 121/71
== END 2020-08-07 16:17 | disposition home or self-care (01) ==
LOC: ER 11:42
DX: K57.32 Diverticulitis of large intestine without perforation or abscess without bleeding (principal); Z88.1 Allergy status to other antibiotic agents; Z88.5 Allergy status to narcotic agent; Z88.8 Allergy status to other drugs, medicaments and biological substances
CPT/HCPCS: 96365; 96361; 85025; 80048; 36415; 80076; 81003; 83690; 74177; 96375; 99284; Q9967; J0696; J7030; J2405

== ENCOUNTER 2023-01-23 09:54 | Emergency (ER) | payer MEDICARE ==
--- OUTSIDE RECORDS SUMMARY | 2023-01-23 09:57 | XMS REPORT | Continuity of Care Document ---
:1940 Author Organization [facility] t Address [address] [place] [address] Care Team Providers Name Role Phone DMITRY SMART Primary Care Physician Unavailable Gayatri Tillman Attending Clinician Unavailable DEDRICK VELEZ Attending Clinician Unavailable Williams_V Attending Clinician Unavailable GAYLORD_S Attending Clinician Unavailable Gayatri Tillman MD Attending Clinician angie Attending Clinician Unavailable Rasheed Scott MD Attending Clinician RASHEED SCOTT Attending Clinician Unavailable Doctor Unassigned, [address] Attending Clinician Unavailable Huey Henson RN Attending Clinician Unavailable Dedrick Velez MD Attending Clinician Mi Pires Attending Clinician Andres_S_AH Attending Clinician Unavailable Joo_A_RY Attending Clinician Unavailable Gayatri Tillman Admitting Clinician Unavailable DEDRICK VELEZ Admitting Clinician Unavailable Williams_V Admitting Clinician Unavailable GAYLORD_S Admitting Clinician Unavailable Maira Admitting Clinician Unavailable Dedrick Velez MD Admitting Clinician Miller_S_AH Admitting Clinician Unavailable Janny_Sage_AH Admitting Clinician Unavailable Payers Payer Name Policy Type Policy Number Effective Date Expiration Date Radha atkins [employer] [place] [employer] [id number] 2021 CLASSIC/VALUE 00:00:00 DEVOTED HEALTH DGEYFY 2021 (MEDICARE 00:00:00 REPLACEMENT HMO) [place]LL[place]ARE OF [place] - [id number] 2019 TEXTANNERPLUS (MEDICARE 00:00:00 REPLACEMENT/ADVANTA GE - HMO) Problems Condition Condition Condition Status Onset Resolution Last Treating Co mments Source Name Details Category Date Date Treatment Clinician Date Infection Infection Disease Active Uni vers due to due to 9-20 ity of Streptococ [place]ococ [place] c[place] cus 00 Medical constellat constellat Br anch us us Infection Infection Disease Active Uni vers due to due to 9-20 ity of Citrobacte [place]bacte [place] braakii r braakii 00 Medi marlo Branch Diverticul Diverticul Disease Active U nivers itis of itis of 9-17 ity of large large 00:00: [place] intestine intestine 00 Medi marlo with with Branch perforatio perforatio n and n and abscess abscess COPD COPD Disease Active Univers (chronic (chronic 9-17 ity of obstructiv obstructiv [place] e e 00 Medical pulmonary pulmonary Bran ch disease) disease) Senile Senile Problem Active Village purpura Purpura 1-26 Family 00:00: Practic 00 e Hyperchole Hyperchole Problem Active V illage sterolemia [...] ents Source Name Type Date Date Clinician Codeine Propensi Active Other - See 2014-09 Diarrhea Univers ty to comments 0-11 and ity of adverse 00:00: vomiting [place] reaction 00 Medical s Branch Meperidi Propensi Active Other - See 2014-09 Vomiting Univers ne Hcl ty to comments 0-11 and ity of adverse 00:00: diaRRHEA [place] reaction 00 Medical s Branch Sulfasuc Propensi Active Rash 2014-09 Univer s cinamide ty to 0-11 ity of adverse 00:00: [place] reaction 00 Medical s Branch Atracuri Propensi Active Other - See 2014-09 Heart U nivers um ty to comments 0-11 stops ity of adverse 00:00: [place] reaction 00 Medical s Branch CODEINE DRUG Active Dizziness 2014-09 Univer s INGREDI 0-11 ity of 00:00: [place] 00 Medical Branch MEPERIDI DRUG Active Dizziness 2014-09 Unive rs NE HCL INGREDI 0-11 ity of 00:00: [place] 00 Medical Branch SULFASUC DRUG Active Rash 2014-09 Univers CINAMIDE INGREDI 0-11 ity of 00:00: [place] 00 Medical Branch ATRACURI DRUG Active Other-Cmnt 2014-09 Univ ers UM INGREDI 0-11 ity of 00:00: [place] 00 Medical Branch Bactrim Allergy Active Mild to Rash [place] to moderate Family substanc Practic e e Codeine Allergy Active Moderate [place] age to to severe Family substanc Practic e e Social History Social Habit Start Date Stop Date Quantity Comments Source Exposure to Not sure [place] of SARS-CoV-2 (event) [facility] Gender identity [facility] [place] [facility] Sexual orientation [facility] Tobacco use and 2021-06-11 2021-06-11 Never used Universit y of exposure 00:00:00 00:00:00 [facility] Tobacco Comment 2021-06-11 2021-06-11 Quit in 2013 Univers ity of 00:00:00 00:00:00 [facility] Sex Ass[birth year] At [birth year] [facility] [place] [facility] 00:00:00 00:00:00 Smoking Status Start Date Stop Date Source Tobacco smoking [facility] consumption unknown Former smoker 2021-06-11 00:00:00 2021-06-11 [facility] [place] 00:00:00 Medical Branch Medications Ordered Filled Start Stop Current Ordering Indication Dosage Frequency Signature Comments Components Source Medication Medication Date Date Medication? Clinician (SIG) Name Name pravastatin Yes 40mg Take 40 mg Univers (PRAVACHOL) 06-03 by mouth ity of 40 mg 16:43: at [place] tablet 47 bedtime. Medical Branch Dexlansopra Yes 60mg Take 60 mg Univers zole 06-03 by mouth ity of (DEXILANT) 16:43: as needed. [place] 60 mg CpDM 47 Medical Branch albuterol Yes 2{puff} Inhale 2 U nivers (PROAIR 06-03 Puffs ity of HFA) 90 16:43: every 6 [place] mcg/actuati 47 (six) Medical on inhaler hours as Branc h needed for Wheezing or Shortness of Breath. albuterol Yes 1{ampul Use 1 Univ ers (ACCUNEB) 06-03 e} Ampule as ity o f 1.25 mg/3 16:43: directed [place] mL 47 every 6 Medical nebulizer (six) Branch solution hours as needed for Wheezing. ProAir HFA ProAir HFA No 2puff(s Q4H ProAir HFA Village 90 90 ) 90 Family mcg/actuati mcg/actuati mcg/actuat Practic on aerosol on aerosol ion e inhaler inhaler aerosol Inhale 2 Inhale 2 inhaler puffs every puffs every Inhale 2 4 hours by 4 hours by puffs inhalation inhalation every 4 route. route. hours by inhalation route. valsartan valsartan No 1 Q1D valsartan [facility] 80 mg 80 mg 80 mg Family tablet Take tablet Take tablet Practic 1 tablet 1 tablet Take 1 e every day every day tablet by oral by oral every day route. route. by oral route. Advair Advair No 1puff(s BID Advair Villag [...] route. atorvastati atorvastati No 1 Q1D atorvastat [facility] n 10 mg n 10 mg in 10 mg Famil y tablet Take tablet Take tablet Practic 1 tablet 1 tablet Take 1 e every day every day tablet by oral by oral every day route. route. by oral route. meloxicam meloxicam No 1 Q1D meloxicam [facility] 7.5 mg 7.5 mg 7.5 mg Family tablet Take tablet Take tablet Practic 1 tablet 1 tablet Take 1 e every day every day tablet by oral by oral every day route. route. by oral route. omeprazole omeprazole No 1capsul Q1D omeprazole [facility] 40 mg 40 mg e(s) 40 mg Family capsule,del capsule,del capsule,de Practic ayed ayed layed e release release release Take 1 Take 1 Take 1 capsule capsule capsule every day every day every day by oral by oral by oral route. route. route. Vital Signs Vital Name Observation Time Observation Value Comments Source Systolic blood 2021-09-25 144 mm[Hg] yas [facility] pressure 16:44:00 chest pain, [facility] headache Branch Diastolic blood 2021-09-25 78 mm[Hg] yas [facility], [place] o f pressure 16:44:00 chest pain, [facility] headache [place] Heart rate 2021-09-25 74 /min [facility] 16:44:00 [facility] Body temperature 2021-09-25 35.56 Misa [facility] 16:44:00 [facility] Respiratory rate 2021-09-25 16 /min [facility] 16:44:00 [facility] Body weight 2021-09-25 61.508 kg [facility] 16:44:00 [facility] BMI 2021-09-25 24.80 kg/m2 [facility] 16:44:00 [facility] Oxygen saturation 2021-09-25 96 /min [facility] in Arterial blood 16:44:00 [facility] by Pulse oximetry [place] Height 2021-01-06 62 [in_i] [place] Family 00:00:00 Practice BMI (Body Mass 2021-01-06 26.7 kg/m2 [facility] Famil y Index) 00:00:00 Practice Body Weight 2021-01-06 146 [lb_av] [place] Family 00:00:00 Practice Height 2020-06-10 62 [in_i] [place] Family 00:00:00 Practice BMI (Body Mass 2020-06-10 26.3 kg/m2 [place] Famil y Index) 00:00:00 Practice Body Weight 2020-06-10 144 [lb_av] [place] Family 00:00:00 Practice Procedures Procedure Date / Time Performed Performing Clinician [facility] e CT ABD/PELVIC EXTERNAL 2022-06-03 16:06:[address] [facility] STUDY Plan of Care Planned Activity Planned Date Details Comments Source Future Scheduled 2022-12-15 SHINGLES VACCINES (1 Met [facility] Test 10:50:26 of 2) [code = SHINGLES VACCINES (1 of 2)] Future Scheduled 2022-12-15 COVID-19 VACCINE (3 - Me [facility] Test 10:50:26 Booster for Pfizer series) [code = COVID-19 VACCINE (3 - Booster for Pfizer series)] Future Scheduled 2022-12-15 INFLUENZA VACCINE [facility] Test 10:50:26 [code = INFLUENZA VACCINE] Future Scheduled 2022-12-15 65+ PNEUMOCOCCAL [facility] Test 10:50:26 VACCINE (1 - PCV) [code = 65+ PNEUMOCOCCAL VACCINE (1 - PCV)] Encounters Start End Encounter Admission Attending Care Care Encounter Source Date/Time Date/Time Type Type Clinicians Facility Department ID 2022-06-01 Inpatient [facility]atri [facility] [id number] [facility] 07:30:[address] [place] [address] 2021-05-28 Inpatient Lea VELEZ OREMA VIDAL [id number] Univers 20:32:00 DEDRICK armenta [facility] [place] 2023-01-21 2023-01-21 Outpatient Williams_V DMG DM [id number] [facility] 00:00:00 00:00:00 0512 Medica l Group 2022-11-17 2022-11-17 Outpatient GAYLORD_S DMG DMG [id number] [facility] 00:00:00 00:00:00 0308 Medica l Group 2022-11-17 2022-11-17 Outpatient GAYLORD_S DMG DMG [id number] [facility] 00:00:00 00:00:00 0506 Medica l Group 2022-08-10 2022-08-10 [facility] Gayatri Tillman 1.2.840.1 [id number] [facility] 15:11:39 23:59:00 Encounter [place] [id number] 207 s t 3.430.2.7 Hospit a .3.251092 l .8 2022-08-10 2022-08-10 Outpatient GAYATRI TILLMAN [facility] [id number] [place] 00:00:00 00:00:[address] 2022-08-10 2022-08-10 Orders Gayatri Tillman 1.2.840.1 [id number] [facility] 00:00:00 00:00:00 Only [place] [id number] 3.430.2.7 Hospit a .3.586433 l .8 2022-05-27 2022-05-27 [id number] [facility] 00:00:00 00:00:00 0915 Medica l Group 2022-03-26 2022-03-26 [facility] [id number] [facility] 06:09:00 06:09:00 0715 Medica l Group 2021-10-15 2021-10-15 [facility] [id number] [facility] 04:30:00 04:30:00 0203 Medica l Group 2021-09-25 2021-09-25 Office [place] [facility] 1.2.840.114 [id number] Univers 10:15:00 11:07:52 Visit Rasheed PATTON 350.1.13.10 i ty of [place] 4.2.7.2.686 Gilma randolph PROFESSIO [id number] Oh dical [address] 2021-09-25 2021-09-25 Outpatient Ponce SCOTT [facility] [id number] Univers 10:15:00 11:07:52 RASHEED armenta [facility] [place] 2021-09-25 2021-09-25 Outpatient Ponce SCOTT [facility] [id number] Univers 10:15:00 10:15:00 RASHEED armenta [facility] [place] 2021-07-29 2021-07-29 Orders Doctor RASHEED 1.2.840.114 [id number] Univers 00:00:00 00:00:00 Only Unassigned, JAKE 350.1.13.[address] HOSPITAL 4.2.7.2.686 Shree as [id number] [facility] 009 Branch 2021-07-13 2021-07-13 Outpatient DMG DMG [id number] [facility] 08:00:00 08:00:00 1101 Medica l Group 2021-07-03 2021-07-03 Outpatient Ponce SCOTT [facility] [id number] Univers 10:45:00 10:45:00 RASHEED armenta [facility] [place] 2021-06-11 2021-06-11 Outpatient Ponce SCOTT [facility] [id number] Univers 14:15:00 14:15:00 RASHEED armenta [facility] [place] 2021-06-11 2021-06-11 [facility] 1.2.840.114 [id number] Univers 13:59:21 14:14:21 Visit Rasheed Vera 350.1.13.10 it y of [place] [facility] 4.2.7.2.686 [place] - [phone] Med ical [facility] 188 Branch 2021-06-04 2021-06-04 Transition Domingo Henson 1.2.840.114 [id number] Univers 00:00:00 00:00:00 of Care Huey Jiang 350.1.13.10 ity of [place] 4.2.7.2.686 [place] [id number] [facility] 403 Branch 2021-05-28 2021-06-03 Hospital Dedrick Velez 1.2.840.1 14 [id number] Univers 20:32:00 16:15:00 Encounter Rasheed Scott 350.1.1 3.10 ity of Hospital 4.2.7.2.686 Shree as [phone] [facility] 096 Branch 2021-05-28 2021-05-28 Emergency [place], [place] 1.2.840.4 [id number] Univers 11:56:00 19:05:00 Khushi 81570.1.1 ity of 3.104.2.7 [place] .3.304643 Medica l .8 Branch 2021-05-28 2021-05-28 Emergency X [facility] [id number] Univers 11:53:00 11:53:00 ity of [place] [facility] 2021-05-28 2021-05-28 Travel 1.2.840.1 [id number] [id number] Univers 00:00:00 00:00:00 46794.1.1 350.1.13.10 ity of 3.104.2.7 4.2.7.3.698 [place] .3.342386 084.8 Medica l .8 [place] 2021-05-28 2021-05-28 Orders Doctor 1.2.840.6 [id number] Univers 00:00:00 00:00:00 Only Unassigned, [address]33.1.[address] 3.104.2.7 [place] .3.855219 Medica l .8 [place] 2021-02-18 2021-02-18 Outpatient Miller_S_AH VFP VFP [id number] [facility] 10:55:00 10:55:00 13763 Family Practic e 2021-01-19 2021-01-19 Outpatient Charlene-Mbayo VFP VFP [id number] [facility] 10:10:00 10:10:00 _A_AH 81462 Family Practic e 2021-01-19 2021-01-19 Outpatient Charlene-Mbayo VFP VFP [id number] [facility] 10:07:00 10:07:00 _A_AH 61588 Family Practic e 2021-01-08 2021-01-08 Outpatient Charlene-Mbayo VFP VFP 797 [id number] [facility] 02:19:00 02:19:00 _A_AH 68177 Family Practic e 2021-01-06 2021-01-06 Yany VFP [place] - [id number] V illage 00:00:00 00:00:00 [place] Fam 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 2020-10-17 2020-10-17 Outpatient Charlene-Mbayo VFP VFP [id number] [facility] 04:27:00 04:27:00 _A_AH 11632 Family Practic e 2020-10-09 2020-10-09 Outpatient Charlene-Mbayo VFP VFP [id number] [id number] [facility] 06:46:00 06:46:00 _A_AH 12702 Family Practic e 2020-10-07 2020-10-07 Yany VFP [place] - [id number] V illage 00:00:00 00:00:00 [facility] matheus soler, GERIATRIC SOCIAL WORK PROFESSOR: Medical - Practi c [address] _[email or web address]@H_ e [facility], [address] [address], [place] [address] , Ph. 2020-07-14 2020-07-14 Outpatient Charlene-Mbayo VFP VFP [id number] [facility] 09:09:00 09:09:00 _A_AH 05693 Family Practic e 2020-07-14 2020-07-14 Outpatient Charlene-Mbayo VFP VFP [id number] [facility] 09:09:00 09:09:00 _A_AH 11968 Family Practic e 2020-07-09 2020-07-09 Outpatient Charlene-Mbayo VFP VFP [id number] [facility] 10:30:00 10:30:00 _A_AH 56017 Family Practic e 2020-07-08 2020-07-08 Outpatient Charlene-Mbayo VFP VFP [id number] [id number] [facility] 09:27:00 09:27:00 _A_AH 40036 Family Practic e 2020-07-03 2020-07-03 Yany VFP [place] - [id number] V illage 00:00:00 00:00:00 Jo [facility] matheus soler, GERIATRIC SOCIAL WORK PROFESSOR: Medical - Practi c [address] _[email or web address]_ e [facility], [address] [address], [place] [address] , Ph. 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 2019-10-31 2019-10-31 [facility] [id number] [facility] 07:23:00 07:23:00 _A_AH 54816 Family Practic e 2019-10-31 2019-10-31 Outpatient [facility] VFP VFP [phone] [facility] 07:23:00 07:23:00 _A_AH 37969 Family Practic e Results This patient has no known results.
[2023-01-23] MEDS ORDERED: TRAMADOL HCL 50 MG TAB ONE (10:53)
[2023-01-23] MEDS ORDERED: CYCLOBENZAPRINE 10 MG TAB ONE (10:53)
[2023-01-23] MEDS ORDERED: METHYLPREDNISOLONE 125 MG INJ ONE (10:53)
--- NOTE | 2023-01-23 11:30 | RAD REPORT ---
EXAM DESCRIPTION: RAD - Hip Right 2 View - 01/23/2023 11:24 am CLINICAL HISTORY: PAIN COMPARISON: <Comparisons> FINDINGS: No fracture, dislocation or AVN.
--- NOTE | 2023-01-23 11:31 | RAD REPORT ---
EXAM DESCRIPTION: RAD - Knee Right 3 View - 01/23/2023 11:24 am CLINICAL HISTORY: PAIN COMPARISON: No comparisons FINDINGS: Moderate osteoarthritis involves the lateral joint compartment. No fracture or joint effus ion.
--- NOTE | 2023-01-23 12:33 | ER ---
Nurse's Notes [facility] Name: Liza Hernandez Age: 82 yrs Sex: Female : 1940 Arrival Date: 01/23/2023 Time: 09:54 Bed 19 Private MD: Diagnosis: Osteoarthritis of knee, unspecified;Osteoarthritis of hip, unspecified Presentation: 01/23 10:07 Chief complaint: Right hip pain that radiates to right thigh x 2 weeks. Denies injury. hb Takes meloxicam for hip pain, reports pain has gotten worse over last 2 days. Coronavirus screen: At this time, the client does not indicate any symptoms associated with coronavirus-19. Ebola Screen: No symptoms or risks identified at this time. Initial Sepsis Screen: Does the patient meet any 2 criteria? No. Patient's initial sepsis screen is negative. Does the patient have a suspected source of infection? No. Patient's initial sepsis screen is negative. Risk Assessment: Do you want to hurt yourself or someone else? Patient reports no desire to harm self or others. Onset of symptoms was January 10, 2023. 10:07 Method Of Arrival: Wheelchair hb 10:07 Acuity: ITZEL 3 hb Historical: - Allergies: 10:09 Bactrim; hb 10:09 Codeine; hb 10:09 Demerol; hb 10:09 Tracium; hb - PMHx: 10:09 COPD; Hyperlipidemia; Vertigo; hb - Immunization history:: Adult Immunizations up to date. - Social history:: Smoking status: Patient/guardian denies using tobacco. Screenin:49 [facility] ED Fall Risk Assessment (Adult) History of falling in the last 3 months, db including since admission No falls in past 3 months (0 pts) Confusion or Disorientation No (0 pts) Intoxicated or Sedated No (0 pts) Impaired Gait Yes (1 pt) Mobility Assist Device Used No (0 pt) Altered Elimination No (0 pt) Score/Fall Risk Level 0 - 2 = Low Risk Oriented to surroundings, Maintained a safe environment. Abuse screen: Denies threats or abuse. Denies injuries from another. Nutritional screening: No deficits noted. Tuberculosis screening: No symptoms or risk factors identified. Assessment: 10:40 Reassessment: Patient appears in no apparent distress at this time. Patient and/or db family updated on plan of care and expected duration. Pain level reassessed. Patient is alert, oriented x 3, equal unlabored respirations, skin warm/dry/pink. right hip and right knee pain. General: Appears in no apparent distress. comfortable, Behavior is calm, cooperative. Pain: Complains of pain in right leg, knee, hip. Neuro: Level of Consciousness is awake, alert, obeys commands, Oriented to person, place, time, situation. 11:40 Reassessment: Patient appears in no apparent distress at this time. Patient and/or kc6 family updated on plan of care and expected duration. Pain level reassessed. Patient is alert, oriented x 3, equal unlabored respirations, skin warm/dry/pink. 12:49 Reassessment: Patient appears in no apparent distress at this time. Patient and/or db family updated on plan of care and expected duration. Pain level reassessed. Patient is alert, oriented x 3, equal unlabored respirations, skin warm/dry/pink. Vital Signs: 10:07 BP 179 / 73; Pulse 74; Resp 16; Temp 98.5(O); Pulse Ox 97% on R/A; Weight 64.41 kg; hb Height 5 ft. 2 in. ; Pain 10/10; 11:39 BP 158 / 81; Pulse 68; Resp 18 S; Pulse Ox 94% on R/A; kc6 12:30 BP 175 / 84; Pulse 69; Resp 18; Pulse Ox 95% on R/A; db 10:07 Body Mass Index 25.97 (64.41 kg, 157.48 cm) hb 10:07 Pain Scale: Adult hb ED Course: 09:55 Patient arrived in ED. ts1 09:57 Nico García MD is Attending Physician. kdr 10:06 Zelda Pino, RN is Primary Nurse. db 10:09 Triage completed. hb 10:09 Arm band placed on. hb 11:26 Knee Right 3 View XRAY In Process Unspecified. EDMS 11:26 Hip Right 2 View XRAY In Process Unspecified. EDMS 12:49 No provider procedures requiring assistance completed. Patient did not have IV access db during this emergency room visit. 12:50 Patient has correct armband on for positive identification. Bed in low position. Call db light in reach. Side rails up X 1. Pulse ox on. NIBP on. Warm blanket given. Administered Medications: 10:53 Drug: Cyclobenzaprine PO 10 mg Route: PO; db 11:43 Follow up: Response: No adverse reaction db 10:54 Drug: MethylPrednisoLONE IVP 125 mg {Note: given in right Vastus lateralus as IM db injection per Dr. García..} Route: IVP; Site: Other; 11:43 Follow up: Response: No adverse reaction db 10:54 Drug: traMADol PO 50 mg Route: PO; db 11:43 Follow up: Response: No adverse reaction db Medication: 12:49 VIS not applicable for this client. db Outcome: 12:33 Discharge ordered by . kdr 12:49 Discharged to home ambulatory. db 12:49 Condition: stable 12:49 Discharge instructions given to patient, Instructed on discharge instructions, follow up and referral plans. Prescriptions given X 2. 12:50 Patient left the ED. db Signatures: Dispatcher [employer] EDNico Bal MD MD kdr Baxter, Heather, RN RN Jessica Ashley RN RN kc6 Zelda Pino RN RN db Mona Rouse, ABIEL PAS ts1
--- NOTE | 2023-01-23 12:33 | EDPHYS ---
Physician Documentation [facility] Name: Liza Hernandez Age: 82 yrs Sex: Female : 1940 Arrival Date: 01/23/2023 Time: 09:54 Bed 19 Private MD: ED Physician Nico García HPI: 01/23 10:46 This 82 yrs old Female presents to ER via Wheelchair with complaints of Leg Pain. kdr 10:46 Patient complains of pain in her right lower extremity that started in her knee is now kdr radiating up into her hip. Is been gradually increasing over the last 3 days. She has a history of multiple joint and musculoskeletal pain has been treated in the past with meloxicam. She was on meloxicam for 30 days up until about 2 weeks ago. She states that she has had intermittent knee pain for some time secondary to twisting it a while back. Over the last 3 days the intermittent right knee pain is now radiating up in her to her right hip. She denies any new trauma or injury. Onset: The symptoms/episode began/occurred gradually, 3 day(s) ago. Severity of symptoms: At their worst the symptoms were mild moderate just prior to arrival, in the emergency department the symptoms are unchanged. The patient has not experienced similar symptoms in the past. The patient has been recently seen by a physician: the patient's primary care provider, Patient states that she has had multiple studies in the last month or so involving CT of her abdomen and possibly radiography of her extremity. She had been on meloxicam for 30-day. For her generalized body aches. She subsequently had a upper GI which revealed changes suggestive of deleterious effects from the meloxicam and her proton inhibitor had been increased by her PCP. Since then, she had a period of relative wellness followed by the last 3 days where and her pain in her right leg became worse starting from the knee and radiating upwards.. Historical: - Allergies: 10:09 Bactrim; hb 10:09 Codeine; hb 10:09 Demerol; hb 10:09 Tracium; hb - PMHx: 10:09 COPD; Hyperlipidemia; Vertigo; hb - Immunization history:: Adult Immunizations up to date. - Social history:: Smoking status: Patient/guardian denies using tobacco. ROS: 10:46 Constitutional: Negative for fever, chills, and weight loss, Eyes: Negative for injury, kdr pain, redness, and discharge, ENT: Negative for injury, pain, and discharge, Neck: Negative for injury, pain, and swelling, Cardiovascular: Negative for chest pain, palpitations, and edema, Respiratory: Negative for shortness of breath, cough, wheezing, and pleuritic chest pain, Abdomen/GI: Negative for abdominal pain, nausea, vomiting, diarrhea, and constipation, Back: Negative for injury and pain, : Negative for injury, bleeding, discharge, and swelling, Skin: Negative for injury, rash, and discoloration, Neuro: Negative for headache, weakness, numbness, tingling, and seizure activity. Psych: Negative for depression, anxiety, suicide ideation, homicidal ideation, and hallucinations, Allergy/Immunology: Negative for hives, rash, and allergies, Endocrine: Negative for neck swelling, polydipsia, polyuria, polyphagia, and marked weight changes, Hematologic/Lymphatic: Negative for swollen nodes, abnormal bleeding, and unusual bruising. 10:46 MS/extremity: Positive for decreased range of motion, pain, of the lateral aspect of right knee, medial aspect of right knee and right quadriceps. Exam: 10:46 Constitutional: This is a well developed, well nourished patient who is awake, alert, kdr and in no acute distress. Head/Face: Normocephalic, atraumatic. Eyes: Pupils equal round and reactive to light, extra-ocular motions intact. Lids and lashes normal. Conjunctiva and sclera are non-icteric and not injected. Cornea within normal limits. Periorbital areas with no swelling, redness, or edema. Neck: Trachea midline, no thyromegaly or masses palpated, and no cervical lymphadenopathy. Supple, full range of motion without nuchal rigidity, or vertebral point tenderness. No Meningismus. Chest/axilla: Normal chest wall appearance and motion. Nontender with no deformity. No lesions are appreciated. Cardiovascular: Regular rate and rhythm with a normal S1 and S2. No gallops, murmurs, or rubs. Normal PMI, no JVD. No pulse deficits. Respiratory: Lungs have equal breath sounds bilaterally, clear to auscultation and percussion. No rales, rhonchi or wheezes noted. No increased work of breathing, no retractions or nasal flaring. Abdomen/GI: Soft, non-tender, with normal bowel sounds. No distension or tympany. No guarding or rebound. No evidence of tenderness throughout. Back: No spinal tenderness. No costovertebral tenderness. Full range of motion. Skin: Warm, dry with normal turgor. Normal color with no rashes, no lesions, and no evidence of cellulitis. Neuro: Awake and alert, GCS 15, oriented to person, place, time, and situation. Cranial nerves II-XII grossly intact. Motor strength 5/5 in all extremities. Sensory grossly intact. Cerebellar exam normal. Normal gait. Psych: Awake, alert, with orientation to person, place and time. Behavior, mood, and affect are within normal limits. Vital Signs: 10:07 BP 179 / 73; Pulse 74; Resp 16; Temp 98.5(O); Pulse Ox 97% on R/A; Weight 64.41 kg; hb Height 5 ft. 2 in. ; Pain 10/10; 11:39 BP 158 / 81; Pulse 68; Resp 18 S; Pulse Ox 94% on R/A; kc6 12:30 BP 175 / 84; Pulse 69; Resp 18; Pulse Ox 95% on R/A; db 10:07 Body Mass Index 25.97 (64.41 kg, 157.48 cm) hb 10:07 Pain Scale: Adult hb MDM: 12:33 Patient medically screened. kdr 14:13 Data reviewed: vital signs, nurses notes. kdr 01/23 10:29 Order name: Knee Right 3 View XRAY; Complete Time: 11:51 kdr 01/23 10:29 Order name: Hip Right 2 View XRAY; Complete Time: 11:51 kdr Administered Medications: 10:53 Drug: Cyclobenzaprine PO 10 mg Route: PO; db 11:43 Follow up: Response: No adverse reaction db 10:54 Drug: MethylPrednisoLONE IVP 125 mg {Note: given in right Vastus lateralus as IM db injection per Dr. García..} Route: IVP; Site: Other; 11:43 Follow up: Response: No adverse reaction db 10:54 Drug: traMADol PO 50 mg Route: PO; db 11:43 Follow up: Response: No adverse reaction db Disposition Summary: 01/23/23 12:33 Discharge Ordered Location: Home kdr Problem: new kdr Symptoms: have improved kdr Condition: Stable kdr Diagnosis - Osteoarthritis of knee, unspecified kdr - Osteoarthritis of hip, unspecified kdr Followup: kdr - With: Private Physician - When: 2 - 3 days - Reason: If symptoms return, Further diagnostic work-up, Recheck today's complaints, Continuance of care, Re-evaluation by your physician Discharge Instructions: - Discharge Summary Sheet kdr - Arthritis kdr - Osteoarthritis kdr Forms: - Medication Reconciliation Form kdr - Thank You Letter kdr - Prescription Opioid Use kdr Prescriptions: - Tramadol 50 mg Oral Tablet - take 1 tablet by ORAL route every 8 hours as needed; 16 tablet; Refills: 0, kdr Product Selection Permitted - Medrol (Carroll) 4 mg Oral Tablets, Dose Pack - take 1 tablet by ORAL route as directed - follow package instructions; 1 kdr packet; Refills: 0, Product Selection Permitted Signatures: Dispatcher [employer] Nico Bravo MD MD kdr Jessica Boyle, RN RN hb Zelda Pino RN RN db
[2023-01-23 12:55] VITALS: TEMP 98.5
[2023-01-23 12:58] VITALS: BP 175/84; O2SAT 95
== END 2023-01-23 12:50 | disposition home or self-care (01) ==
LOC: ER 09:54
DX: M17.11 Unilateral primary osteoarthritis, right knee (principal); M16.11 Unilateral primary osteoarthritis, right hip; Z88.1 Allergy status to other antibiotic agents; Z88.5 Allergy status to narcotic agent
CPT/HCPCS: 73502; 73562; 96374; 99284; J2930

== ENCOUNTER 2023-02-09 04:54 | Emergency (ER) | payer MEDICARE ==
--- OUTSIDE RECORDS SUMMARY | 2023-02-09 04:58 | XMS REPORT | Continuity of Care Document ---
:1940 Author Organization [facility] t Address [address] [place] [address] Care Team Providers Name Role Phone DMITRY SMART Primary Care Physician Unavailable Gayatri Tillman Attending Clinician Unavailable DEDRICK VELEZ Attending Clinician Unavailable Williams_V Attending Clinician Unavailable GAYLORD_S Attending Clinician Unavailable GAYATRI TILLMAN Attending Clinician Unavailable BWangie Attending Clinician Unavailable Rasheed Scott MD Attending Clinician RASHEED SCOTT Attending Clinician Unavailable Doctor Unassigned, [place] Attending Clinician Unavailable Huey Henson RN Attending Clinician Unavailable Dedrick Velez MD Attending Clinician Mi Pires Attending Clinician Miller_S_AH Attending Clinician Unavailable Charlene-Mbayo_A_AH Attending Clinician Unavailable Gayatri Tillman Admitting Clinician Unavailable DEDRICK VELEZ Admitting Clinician Unavailable Williams_V Admitting Clinician Unavailable GAYLORD_S Admitting Clinician Unavailable BWilliams Admitting Clinician Unavailable Dedrick Velez MD Admitting Clinician Miller_S_AH Admitting Clinician Unavailable Charlene-Mbayo_A_AH Admitting Clinician Unavailable Payers Payer Name Policy Type Policy Number Effective Date Expiration Date Radha atkins [employer] PLUS [id number] 2021 CLASSIC/VALUE 00:00:00 [employer] DGEYFY 2021 (MEDICARE 00:00:00 REPLACEMENT HMO) [place] OF [place] - [id number] 2019 [place] (MEDICARE 00:00:00 REPLACEMENT/ADVANTA GE - HMO) Problems [...] of 9-17 ity of large large 00:00: [place] intestine intestine 00 Medi marlo with with [...] Gastroesop Problem Active V illage hageal hageal - Family reflux Reflux 00:00: Practic disease Disease [...] Start Date Stop Date Quantity Comments Source Gender identity Muslim [facility] orientation [facility] Exposure to Not sure [place] of SARS-CoV-2 (event) [facility] Tobacco use and 2021-06-11 2021-06-11 Never used [facility] exposure 00:00:00 00:00:00 [facility] Tobacco Comment 2021-06-11 2021-06-11 Quit in 2014 Univers ity of 00:00:00 00:00:00 [facility] Sex Assigned At [birth year] [facility] 00:00:00 00:00:00 Smoking Status Start Date Stop Date Source Tobacco smoking [facility] consumption unknown Former smoker 2021-06-11 00:00:00 2021-06-11 [place] [facility] [place] 00:00:00 [facility] Medications Ordered Filled Start [...] ProAir HFA No 2puff(s Q4H ProAir HFA [facility] 90 90 ) 90 Family mcg/actuati mcg/actuati mcg/actuat Practic on aerosol on aerosol ion e inhaler inhaler aerosol Inhale 2 Inhale 2 inhaler puffs every puffs every Inhale 2 4 hours by 4 hours by puffs inhalation inhalation every 4 route. route. hours by inhalation route. valsartan valsartan No 1 Q1D valsartan [facility] 80 mg 80 mg 80 mg [...] route. atorvastati atorvastati No 1 Q1D atorvastat [facility] n 10 mg n 10 mg in 10 mg Famil y tablet Take tablet Take tablet Practic 1 tablet 1 tablet Take 1 e every day every day tablet by oral by oral every day route. route. by oral route. meloxicam meloxicam No 1 Q1D meloxicam [facility] 7.5 mg 7.5 mg 7.5 mg Family tablet Take tablet Take tablet Practic 1 tablet 1 tablet Take 1 e every day every day tablet by oral by oral every day route. route. by oral route. omeprazole omeprazole No 1capsul Q1D omeprazole [facility] 40 mg 40 mg e(s) 40 mg Family capsule,del capsule,del capsule,de Practic ayed ayed layed e release release release Take 1 Take 1 Take 1 capsule capsule capsule every day every day every day by oral by oral by oral route. route. route. Vital Signs Vital Name Observation Time Observation Value Comments Source Systolic blood 2021-09-25 144 mm[Hg] yas [facility] pressure 16:44:00 chest pain, [facility] Diastolic blood 2021-09-25 78 mm[Hg] yas [facility], [place] o f pressure 16:44:00 chest pain, [facility] headache [place] Heart rate 2021-09-25 74 /min [facility] 16:44:00 [facility] Body temperature 2021-09-25 35.56 Misa [facility] 16:44:00 [facility] Respiratory rate 2021-09-25 16 /min [facility] 16:44:00 [facility] Body weight 2021-09-25 61.508 kg [facility] 16:44:00 [facility] BMI 2021-09-25 24.80 kg/m2 [facility] 16:44:00 [facility] Oxygen saturation 2021-09-25 96 /min [facility] Arterial blood 16:44:00 [facility] by Pulse oximetry [place] Height 2021-01-06 62 [in_i] [facility] 00:[facility]00 [facility] BMI (Body Mass 2021-01-06 26.7 kg/m2 [facility] Index) 00:00:00 Practice Body Weight 2021-01-06 146 [lb_av] [facility] 00:[facility]:00 Practice Height 2020-06-10 62 [in_i] [facility] 00:00:00 Practice BMI (Body Mass 2020-06-10 26.3 kg/m2 [facility] Index) 00:00:00 Practice Body Weight 2020-06-10 144 [lb_av] [facility] 00:00:00 Practice Procedures Procedure Date / Time Performed Performing Clinician Sour e CT ABD/PELVIC EXTERNAL 2022-06-03 16:06:50 Gayatri Tillman [facility] STUDY Plan of Care Planned Activity Planned Date Details Comments Source Future Scheduled 2022-12-15 SHINGLES VACCINES (1 [facility] Test 10:50:26 of 2) [code = SHINGLES VACCINES (1 of 2)] Future Scheduled 2022-12-15 COVID-19 VACCINE (3 - Me [facility] Test 10:50:26 Booster for Pfizer series) [code = COVID-19 VACCINE (3 - Booster for Pfizer series)] Future Scheduled 2022-12-15 INFLUENZA VACCINE [facility] 10:50:26 [code = INFLUENZA VACCINE] Future Scheduled 2022-12-15 65+ PNEUMOCOCCAL [facility] Test 10:50:26 VACCINE (1 - PCV) [code = 65+ PNEUMOCOCCAL VACCINE (1 - PCV)] Encounters Start End Encounter Admission Attending Care Care Encounter Source Date/Time Date/Time Type Type Clinicians Facility Department ID 2022-06-01 Inpatient Gayatri Jean [facility] DAYS [id number] [facility] 07:30:00 98 [facility] 2021-05-28 Inpatient Lea VELEZ MIIDALIA VIDAL [id number] Univers 20:32:00 DEDRICK armenta [facility] 2023-01-21 2023-01-21 Outpatient Williams_V DMG DMG [id number] [facility] 00:00:00 00:00:00 0512 [facility] 2022-11-17 2022-11-17 Outpatient GAYLORD_S DMG DMG [id number] [facility] 00:00:00 00:00:00 0308 [facility] l Group 2022-11-17 2022-11-17 Outpatient GAYLORD_S DMG DMG [id number] [facility] 00:00:00 00:00:00 0506 Medica l Group 2022-08-10 2022-08-10 [facility] GAYATRI TILLMAN 1.2.840.1 [id number] [place] 00:00:00 00:00:00 Encounter [id number] .3.645037 .8 2022-08-10 2022-08-10 Orders Gayatri Tillman 1.2.840.1 [id number] [facility] 00:00:00 00:00:00 Only Chalino 73852.1.[address] 3.430.2.7 Hospit a .3.342286 l .8 2022-05-27 2022-05-27 [id number] 00:00:00 00:00:00 0915 Medica l Group 2022-03-26 2022-03-26 [facility] [id number] [facility] 06:09:00 06:09:00 0715 Medica l Group 2021-10-15 2021-10-15 Outpatient [facility] [id number] [facility] 04:30:00 04:30:00 0203 Medica l Group 2021-09-25 2021-09-25 [facility] 1.2.840.114 [id number] Univers 10:15:00 11:07:52 Visit Rasheed PATTON 350.1.13.10 i ty of [place] 4.2.7.2.686 [place] [id number] Ms dical [address] 2021-09-25 2021-09-25 [facility] [id number] Univers 10:15:00 11:07:52 RASHEED armenta [facility] 2021-09-25 2021-09-25 [facility] [id number] Univers 10:15:00 10:15:00 RASHEED armenta [facility] 2021-07-29 2021-07-29 Orders Doctor RASHEED 1.2.840.114 [id number] Univers 00:00:00 00:00:00 Only Unassigned, JAKE 350.1.13.10 ity of [place] [facility] 4.2.7.2.686 Shree as [id number] [address] 2021-07-13 2021-07-13 Outpatient [facility] [id number] [facility] 08:00:00 08:00:00 1101 Medica l Group 2021-07-03 2021-07-03 Outpatient R TYLER [facility] [id number] Univers 10:45:00 10:45:00 RASHEED armenta [facility] 2021-06-11 2021-06-11 Outpatient Ponce SCOTT [facility] [id number] Univers 14:15:00 14:15:00 RASHEED armenta [facility] 2021-06-11 2021-06-11 Office Tyler [facility] 1.2.840.114 [id number] Univers 13:59:21 14:14:21 Visit Rasheed Vera 350.1.13.10 it y of [place] [facility] 4[place]7.2.686 [place] - [id number] Med ical [facility] [address] Branch 2021-06-04 2021-06-04 Transition Domingo Henson 1.2.840.114 [id number] Univers 00:00:00 00:00:00 of Care Huey Jiang 350.1.13.10 ity of [place] 4[place]2.7.2.686 [place] [id number] [facility] [address] 2021-05-28 2021-06-03 Hospital Jordan Dedrick Jonese 1.2.840.1 14 [id number] Univers 20:32:00 16:15:00 Encounter Tyler Rasheed Gutierrezy 350.1.1 3.10 ity of [facility] 4.2.7.2.686 Shree as [id number] [facility] 096 Branch 2021-05-28 2021-05-28 Emergency [place], [place] 1.2.840.9 [id number] Univers 11:56:00 19:05:00 Khushi 94630.1.1 ity of 3.104.2.7 [place] .3.390849 Medica l .8 Branch 2021-05-28 2021-05-28 Emergency X [facility] ERT [id number] Univers 11:53:00 11:53:00 ity of [facility] 2021-05-28 2021-05-28 Travel 1.2.840.1 1.2.023.827 [id number] Univers 00:00:00 00:00:00 38623.1.1 350.1.13.10 [place] of 3.104.2.7 4[place]7.3.698 [place] .3.352221 084.8 Medica l .8 Branch 2021-05-28 2021-05-28 Orders Doctor 1.2.840.2 [id number] Univers 00:00:00 00:00:00 Only Unassigned, 75486.1.1 ity of [place] 3.104.2.7 [place] .3.786503 Medica l .8 Branch 2021-02-18 2021-02-18 Outpatient Miller_S_AH VFP VFP [id number] [facility] 10:55:00 10:55:00 78810 Family Practic e 2021-01-19 2021-01-19 Outpatient Charlene-Mbayo VFP VFP [id number] [facility] 10:10:00 10:10:00 _A_AH 27868 Family Practic e 2021-01-19 2021-01-19 Outpatient Charlene-Mbayo VFP VFP [id number] [facility] 10:07:00 10:07:00 _A_AH 98855 Family Practic e 2021-01-08 2021-01-08 Outpatient Charlene-Mbayo VFP VFP [id number] [facility] 02:19:00 02:19:00 _A_AH 23768 Family Practic e 2021-01-06 2021-01-06 Yany VFP [place] - [id number] V illage 00:00:00 00:00:00 Charlene-Mbay [facility] Fam matheus soler [employer]: Medical - Practi c [address] [email or web address] [email or web address], [place] [address], [place] [address] , Ph. 2020-10-17 2020-10-17 Outpatient Charlene-Mbayo VFP VFP [id number] [facility] 04:27:00 04:27:00 _A_AH 36443 Family Practic e 2020-10-09 2020-10-09 Outpatient Charlene-Mbayo VFP VFP [id number] [facility] 06:46:00 06:46:00 _A_AH 13467 Family Practic e 2020-10-07 2020-10-07 Yany VFP [place] - [id number] V illage 00:00:00 00:00:00 Jo [facility] Charly matheus soler [employer]: Medical - Practi c [address] [email or web address] [facility], [place] [address], [place] [address] , Ph. 2020-07-14 2020-07-14 Outpatient Charlene-Mbayo VFP VFP [id number] [facility] 09:09:00 09:09:00 _A_AH 16313 Family Practic e 2020-07-14 2020-07-14 Outpatient Charlene-Mbayo VFP VFP [id number] Village 09:09:00 09:09:00 _A_AH 02759 Family Practic e 2020-07-09 2020-07-09 Outpatient Charlene-Mbayo VFP VFP [id number] [facility] 10:30:00 10:30:00 _A_AH 56494 Family Practic e 2020-07-08 2020-07-08 Outpatient Charlene-Mbayo VFP VFP [id number] [facility] 09:27:00 09:27:00 _A_AH 24032 Family Practic e 2020-07-03 2020-07-03 Yany VFP [place] - [id number] V illage 00:00:00 00:00:00 CharleneVern [facility] matheus soler, [employer]: Medical - Practi c [address] [email or web address] [facility], [place] [address], [place] [address] , Ph. 2020-06-18 2020-06-18 Outpatient Charlene-Mbayo VFP VFP [id number] [facility] 11:37:00 11:37:00 _A_AH 49583 Family Practic e 2020-06-10 2020-06-10 Yany VFP [place] - [id number] V illage 00:00:00 00:00:00 CharleneHarini [facility] matheus soler, [employer]: Medical - Practi c [address] [email or web address] [facility], [place] [address], [place] [address] , Ph. 2019-10-31 2019-10-31 Outpatient [facility] VFP VFP [id number] [facility] 07:23:00 07:23:00 _A_ 85847 Family Practic e 2019-10-31 2019-10-31 Outpatient [facility] VFP VFP [id number] [facility] 07:23:00 07:23:00 _A_AH 84832 Family Practic e Results This patient has no known results.
[2023-02-09] MEDS ORDERED: ONDANSETRON 4 MG (ODT) TAB ONE (05:42)
[2023-02-09] MEDS ORDERED: methocarbamoL 500 MG TAB ONE (06:05)
[2023-02-09] MEDS ORDERED: methocarbamoL 750 MG TAB ONE (06:07)
[2023-02-09] MEDS ORDERED: HYDROCODONE/APAP 10/325 TAB ONE (07:22)
--- NOTE | 2023-02-09 08:00 | ER ---
Nurse's Notes [facility] Name: Liza Hernandez Age: 82 yrs Sex: Female : 1940 Arrival Date: 02/09/2023 Time: 04:54 Bed 16 Private MD: Diagnosis: Acute musculoskeletal pain in the buttock. Acute pelvic pain in female, enlarged left ovary, diverticulosis without diverticulitis. Musculoskeletal pain. Osteopenia Presentation: 02/09 05:02 Chief complaint: EMS states: toned out to 82 F with chronic right hip pain that aa9 radiates to the R foot. described as numbness or tingly. pt reports unable to place weight on that R foot. Denies trauma. Initial Sepsis Screen: Does the patient meet any 2 criteria? No. Patient's initial sepsis screen is negative. Does the patient have a suspected source of infection? No. Patient's initial sepsis screen is negative. Risk Assessment: Do you want to hurt yourself or someone else? Patient reports no desire to harm self or others. Onset of symptoms was February 09, 2023. Care prior to arrival: Medication(s) given: zofran 4 mg, 100 mcg Fentanyl IV initiated. 20 GA, in the right forearm. 05:02 Method Of Arrival: EMS: [facility] aa9 05:02 Acuity: ITZEL 4 aa9 08:12 Coronavirus screen: At this time, the client does not indicate any symptoms associated ko1 with coronavirus-19. Ebola Screen: No symptoms or risks identified at this time. Triage Assessment: 05:05 General: Appears uncomfortable, Behavior is cooperative, anxious. Pain: Complains of aa9 pain in R HIP Pain radiates to R Foot Pain currently is 5 out of 10 on a pain scale. Neuro: Level of Consciousness is awake, alert, obeys commands, Oriented to person, place, time, situation. Cardiovascular: Patient's skin is warm and dry. Respiratory: Airway is patent Respiratory effort is even, unlabored. : No signs and/or symptoms were reported regarding the genitourinary system. Musculoskeletal: Reports weakness in right leg numbness in right foot since earlier this evening . Historical: - Allergies: 05:05 Bactrim; aa9 05:05 Codeine; aa9 05:05 Demerol; aa9 05:05 Tracium; aa9 - PMHx: 05:05 COPD; Hyperlipidemia; Vertigo; aa9 - Immunization history:: Adult Immunizations unknown. - Social history:: Smoking status: . - Family history:: not pertinent. Screenin:05 [facility] ED Fall Risk Assessment (Adult) History of falling in the last 3 months, ko1 including since admission No falls in past 3 months (0 pts) Confusion or Disorientation No (0 pts) Intoxicated or Sedated No (0 pts) Impaired Gait Yes (1 pt) Mobility Assist Device Used Yes (1 pt) Altered Elimination No (0 pt) Score/Fall Risk Level 0 - 2 = Low Risk Oriented to surroundings, Maintained a safe environment, Educated pt \T\ family on fall prevention, incl call for assistance when getting out of bed, Assessed \T\ reinforced patient's understanding of fall precautions, Provided non-skid footwear, Hourly rounding (assess needs \T\ fall precautionary measures) done, Used ambulatory aids as needed (educated on \T\ assisted with), Used gait belt as appropriate. Abuse screen: Denies threats or abuse. Denies injuries from another. Nutritional screening: No deficits noted. Tuberculosis screening: No symptoms or risk factors identified. Assessment: 05:27 Reassessment: Patient appears in no apparent distress at this time. Madeleine BELLO at aa9 bedside. Vital Signs: 05:09 BP 144 / 58; Pulse 57; Resp 17 S; Temp 98.5(O); Pulse Ox 95% on R/A; Weight 64.86 kg; aa9 Height 5 ft. 2 in. ; Pain 3/10; 05:09 Body Mass Index 26.15 (64.86 kg, 157.48 cm) aa9 05:09 Pain Scale: Adult aa9 ED Course: 04:55 Patient arrived in ED. sb4 05:02 Lauren Anderson, STEPHY is Primary Nurse. aa9 05:05 Triage completed. aa9 05:07 Arm band placed on. aa9 05:10 Jeremie Salvador MD is Attending Physician. sp4 05:10 Patient has correct armband on for positive identification. Bed in low position. Call aa9 light in reach. Side rails up X2. Pulse ox on. NIBP on. 06:20 CT Pelvis wo Cont In Process Unspecified. EDMS 07:05 No provider procedures requiring assistance completed. IV discontinued, intact, ko1 bleeding controlled, No redness/swelling at site. Pressure dressing applied. Administered Medications: 05:35 Drug: Ondansetron PO 4 mg Route: PO; aa9 06:01 Drug: Methocarbamol PO 750 mg Route: PO; aa9 07:18 Drug: [place] PO 10 mg-325 mg 1 tabs Route: PO; ko1 Medication: 08:11 VIS not applicable for this client. ko1 Outcome: 07:05 Discharged to home via wheelchair, with family. ko1 07:05 Condition: stable 07:05 Discharge instructions given to patient, Instructed on discharge instructions, follow up and referral plans. medication usage, Demonstrated understanding of instructions, follow-up care, medications, Prescriptions given X 2. 08:00 Discharge ordered by . sp4 09:02 Patient left the ED. ko1 Signatures: Dispatcher [employer] EDMS Lauren Anderson RN RN aa9 Brenda Rodriguez RN RN ko1 Fany Martell, PA-C PA-Asif sb4 Jeremie Salvador MD MD sp4 Corrections: (The following items were deleted from the chart) 05:27 05:02 Chief complaint: EMS states: toned out to 82 F with chronic right hip pain that aa9 radiates to the R foot. described as numbness or tingly. pt reports unable to place weight on that R foot. aa9
--- NOTE | 2023-02-09 08:00 | EDPHYS ---
Physician Documentation [facility] Name: Liza Hernandez Age: 82 yrs Sex: Female : 1940 Arrival Date: 02/09/2023 Time: 04:54 Bed 16 Private MD: ED Physician Jeremie Salvador HPI: 02/09 05:10 This 82 yrs old Female presents to ER via EMS with complaints of hip pain . sp4 05:32 Patient presents with EMS for moderate right buttock pain starting reportedly on sp4 Mother's Day. Patient reports other is pain at the site of the ischial tuberosity on the right side. Patient was here on 01/22/2023 for the same complaint was diagnosed with a right hip osteoarthritis and discharged home. Patient was prescribed tramadol as needed for pain.. Historical: - Allergies: 05:05 Bactrim; aa9 05:05 Codeine; aa9 05:05 Demerol; aa9 05:05 Tracium; aa9 - PMHx: 05:05 COPD; Hyperlipidemia; Vertigo; aa9 - Immunization history:: Adult Immunizations unknown. - Social history:: Smoking status: . - Family history:: not pertinent. ROS: 05:32 Constitutional: Negative for fever, chills, and weight loss, MS/Extremity: Negative for sp4 injury and deformity, positive for right buttock pain, pain right lower pelvic bones at the site of ischial tuberosity Skin: Negative for injury, rash, and discoloration. 05:32 All other systems are negative. Exam: 05:32 Constitutional: This is a well developed, well nourished patient who is awake, alert, sp4 and in no acute distress. Head/Face: Normocephalic, atraumatic. Eyes: Pupils equal round and reactive to light, extra-ocular motions intact. Lids and lashes normal. Conjunctiva and sclera are not injected. Cornea within normal limits. Periorbital areas with no swelling, redness, or edema. ENT: Nares patent. No nasal discharge, no septal abnormalities noted. Tympanic membranes are normal and external auditory canals are clear. Oropharynx with no redness, swelling, or masses, exudates, or evidence of obstruction, uvula midline. Mucous membranes moist. Neck: Trachea midline, no thyromegaly or masses palpated, and no cervical lymphadenopathy. Supple, full range of motion without nuchal rigidity, or vertebral point tenderness. No Meningismus. Chest/axilla: Normal chest wall appearance and motion. Nontender with no deformity. No lesions are appreciated. Cardiovascular: Regular rate and rhythm with a normal S1 and S2. No gallops, murmurs, or rubs. Normal PMI, no JVD. No pulse deficits. Respiratory: Lungs have equal breath sounds bilaterally, clear to auscultation and percussion. No rales, rhonchi or wheezes noted. No increased work of breathing, no retractions or nasal flaring. Abdomen/GI: Soft, non-tender, with normal bowel sounds. No distension or tympany. No guarding or rebound. No evidence of tenderness throughout. Back: No spinal tenderness. No costovertebral tenderness. Skin: Warm, dry with normal turgor. Normal color with no rashes, no lesions, and no evidence of cellulitis. MS/ Extremity: Pulses equal, no cyanosis. Neurovascular intact. Full, normal range of motion. Tenderness at the right ischial tuberosity in the right buttock. Negative for signs of sciatica, negative straight leg raise Neuro: Awake and alert, GCS 15, oriented to person, place, time, and situation. Cranial nerves II-XII grossly intact. Motor strength 5/5 in all extremities. Sensory grossly intact. Psych: Awake, alert, with orientation to person, place and time. Behavior, mood, and affect are within normal limits Vital Signs: 05:09 BP 144 / 58; Pulse 57; Resp 17 S; Temp 98.5(O); Pulse Ox 95% on R/A; Weight 64.86 kg; aa9 Height 5 ft. 2 in. ; Pain 3/10; 05:09 Body Mass Index 26.15 (64.86 kg, 157.48 cm) aa9 05:09 Pain Scale: Adult aa9 MDM: 05:11 Patient medically screened. sp4 07:58 Differential Diagnosis Acute pelvic pain, stress fracture, osteoarthritis, sp4 osteoporosis, osteopenia, inflammatory arthritis. Data reviewed: vital signs, nurses notes, old medical records, radiologic studies, CT scan. ED course: CT pelvis revealed severe sigmoid diverticulosis without findings of diverticulitis. No acute abnormality within the pelvis. Relatively osteopenic appearance of the bones. Consider DEXA scan. Asymmetric enlargement of the left ovary measuring 3.7 x 2.3 cm greater than expected in a postmenopausal female. Recommend further characterization by pelvic ultrasound. No signs of acute injury or pelvic fracture. 02/09 05:32 Order name: CT Pelvis wo Cont sp4 Administered Medications: 05:35 Drug: Ondansetron PO 4 mg Route: PO; aa9 06:01 Drug: Methocarbamol PO 750 mg Route: PO; aa9 07:18 Drug: [place] PO 10 mg-325 mg 1 tabs Route: PO; ko1 Disposition Summary: 02/09/23 08:00 Discharge Ordered Location: Home sp4 Problem: new sp4 Symptoms: have improved sp4 Condition: Stable sp4 Diagnosis - Acute musculoskeletal pain in the buttock. Acute pelvic pain in female, enlarged sp4 left ovary, diverticulosis without diverticulitis. Musculoskeletal pain. Osteopenia Followup: sp4 - With: Private Physician - When: 7 - 10 days - Reason: Recheck today's complaints Discharge Instructions: - Discharge Summary Sheet sp4 - Musculoskeletal Pain sp4 Forms: - Prescription Opioid Use sp4 Prescriptions: - Tramadol 50 mg Oral Tablet - take 1 tablet by ORAL route every 8 hours as needed; 30 tablet; Refills: 0, sp4 Product Selection Permitted - methocarbamol 750 mg Oral Tablet - take 2 tablets by ORAL route 4 times per day for 2 days; 60 tablet; Refills: 0, sp4 Product Selection Permitted Signatures: Dispatcher [employer] Lauren Mahmood RN RN aa9 Brenda Rodriguez RN RN ko1 Jeremie Salvador MD MD sp4
[2023-02-09 09:08] VITALS: BP 144/58; TEMP 98.5; O2SAT 95
--- NOTE | 2023-02-09 11:34 | RAD REPORT ---
EXAM DESCRIPTION: CT - Pelvis Wo Cont - 02/09/2023 6:55 am CLINICAL HISTORY: The patient is 82 years old and is Female; pelvic pain [facility] MAIN TECHNIQUE: Axial computed tomog gus images of the pelvis without intravenous contrast. Sagittal and coronal reformatted images we re created and reviewed. This CT exam was performed using one or more of the following dose reducti on techniques: automated exposure control, adjustment of the mA and/or kV according to patient size , and/or use of iterative reconstruction technique. COMPARISON: 06/03/22 CT abdomen pelvis without contrast FINDINGS: BOWEL: Severe sigmoid diverticulosis without evidence of acute diverticulitis. No obstruction. APPENDIX: No findings to suggest acute appendicitis. INTRAPERITONEAL SPACE: Unremarkable. No free air. No significant fluid collection. BLADDER: Unremarkable. No stones. REPRODUCTIVE: Asymmetric enlargement of the left ovary, measuring up to 3.7 x 2.3 cm, greater than expected for a postmenopausal female. BONES/JOINTS: Relative osteopenic appearance of the bones. No acute fracture. No dislocation. SOFT TISSUES: Unremarkable. VASCULATURE: Ectasia of the densely calcified infrarenal abdominal aorta, measuring up to 2.[address] above the aortoiliac bifurcation. No lower abdominal aortic aneurysm. LYMPH NODES: Unremarkable. No enlarged lymph nodes. IMPRESSION: 1. Severe sigmoid diverticulosis without definite findings to suggest acute diverticul itis. 2. Allowing for lack of intravenous contrast, no acute abnormality within the pelvis. 3. Relative osteopenic appearance of the bones. Consider DEXA scan if not recently performed to e valuate and potentially treat osteoporosis/osteopenia. 4. Asymmetric enlargement of the left ovary, measuring up to 3.7 x 2.3 cm, greater than expected fo r a postmenopausal female. Recommend further characterization by pelvic ultrasound. Electronically signed by: Orlando De La Cruz MD 02/09/2023 6:42 AM CDT Due to temporary technical issues with the PACS/Fluency reporting system, reports are being signed by the in house radiologist without review as a courtesy to ensure prompt reporting. The interpreting r adiologist is fully responsible for the content of the report.
== END 2023-02-09 09:02 | disposition home or self-care (01) ==
LOC: ER 04:54
DX: M79.18 Myalgia, other site (principal); R10.2 Pelvic and perineal pain; N83.8 Other noninflammatory disorders of ovary, fallopian tube and broad ligament; Z88.1 Allergy status to other antibiotic agents; Z88.5 Allergy status to narcotic agent; Z88.8 Allergy status to other drugs, medicaments and biological substances
CPT/HCPCS: 72192; 99284; Q0162